=== PATIENT | male | born 1935 | race Caucasian/White ===

== ENCOUNTER 2016-12-07 13:45 | Emergency (ER) | payer OTHER ==
[~2016-12-07] VITALS: Ht 170.1 cm; Wt 81.6 kg
[~2016-12-07 13:45] MED LIST: ASPIRIN81 M1 PO; CARAFATE1 G1 PO; CIPRO500 MG PO; CLARITIN10 MG PO; COMPLETE SENIOR1 TA1 PO; EXTRA STRENGTH500 MG PO; FLOMAX0.4 MG PO; IBU800 MG PO; MECLOFENAMATE PO; MEDROL DOSEPAK4 MG PO; NEURONTIN300 MG PO; NORVASC10 MG PO; PERCOCET 325 MG1 TA2 PO; PROSCAR5 M1 PO; PROTONIX20 MG PO; PROTONIX40 MG PO; VITAMIN C500 M4 PO; VITAMIN D1000 IU PO; XALATAN 0.005%2.5 ML OS; ZANTAC 150150 MG PO; ZESTRIL40 MG PO; ZOFRAN ODT4 MG SL; [UNRECOGNIZED DRUG - OTHER] PO
[2016-12-07 15:00] VITALS: BP 128/70
== END 2016-12-07 16:20 | disposition home or self-care (01) ==
LOC: ED 13:45
DX: S01.81XA Laceration without foreign body of other part of head, initial encounter (principal); M79.622 Pain in left upper arm; Z98.890 Other specified postprocedural states; Z98.49 Cataract extraction status, unspecified eye; Z87.442 Personal history of urinary calculi; Z79.82 Long term (current) use of aspirin; W01.198A Fall on same level from slipping, tripping and stumbling with subsequent striking against other object, initial encounter; Y93.89 Activity, other specified; Y92.89 Other specified places as the place of occurrence of the external cause; Y99.9 Unspecified external cause status

== ENCOUNTER → 2017-10-01 | Outpatient (CLI) | payer OTHER | END | disposition home or self-care (01) | LOC: LAB 08:50 | DX: Z12.5 Encounter for screening for malignant neoplasm of prostate (principal); N20.0 Calculus of kidney; N40.0 Benign prostatic hyperplasia without lower urinary tract symptoms ==

== ENCOUNTER 2018-01-13 09:15 | Inpatient (IN) | payer OTHER ==
[2018-01-13] VITALS (10 sets, daily range): BP systolic 114–146; BP diastolic 67–82
[~2018-01-13] VITALS: Ht 170.1 cm; Wt 81.4 kg
--- NOTE | ~2018-01-13 | CON ---
[place], [place] REPORT OF CONSULTATION NAME: [facility]UFO [id number] UN[facility] #: [id number] ROOM: 530 DOCTOR: KADEN LIM MD BIRTHDATE: [birth year] DOS: 01/15/2018 HISTORY OF PRESENT ILLNESS: An 82-year-old patient who presented with chief complaint of epigastric abdominal pain. The patient is on Mobic. The patient was awakened with epigastric pain. His initial blood work shows white blood cell was 5.4, H and H of 12 and 40, when he ____ lactic acid was normal. INR 1.0. Chest x-ray was assessed, normal single chest x-ray. Comprehensive metabolic panel, BUN and creatinine 26 and 1.3. Electrolytes balance, liver function test normal. C-reactive protein 0.75. BNP normal. CT scan was reassessed and lung bases are clear. Liver, spleen, pancreas, adrenal glands, main organs within normal limits. There is a 5 mm stone at the left UV junction, but no hydronephrosis, otherwise benign. Sonogram was reviewed and unremarkable. Abdominal ultrasound, no cholelithiasis, no biliary dilation. Troponins normal. CBC, white blood cell remains 4.6, H and H of 11.9 and 36.9. No evidence of active bleeding. Blood cultures, normal. Hemoglobin A1c is 5.9. PAST MEDICAL HISTORY: Dyslipidemia, BPH, essential hypertension, gastroesophageal reflux, and renal calculi, all was reviewed. PAST SURGICAL HISTORY: Cataract extraction, hernia repair. SOCIAL HISTORY: Nonsmoker, nonalcohol consumer. FAMILY HISTORY: Noncontributory. ALLERGIES: To no known medications. MEDICATIONS: List was reviewed including aspirin and Meloxicam. He has been on Protonix at the same time. His medications reviewed. His labs reviewed. REVIEW OF SYSTEMS: HEENT: Denies double vision, blurred vision. RESPIRATORY: Denies shortness of breath. CARDIOVASCULAR: Denies acute chest pain. DIGESTIVE SYSTEM: Epigastric pain and subxiphoid pain. PHYSICAL EXAMINATION: GENERAL: Appears to be in no acute distress. HEENT: Head normocephalic, nontraumatic. Mouth and buccal mucosa benign. NECK: Supple, no thyromegaly, no cervical lymphadenopathy. CHEST: Symmetric anatomy, equal expansion. No wheeze, no rhonchi. HEART: Normal sinus rhythm, no gallop or murmur. ABDOMEN: Soft. No hepato-organomegaly. Bowel sounds present. No pulsatile mass. EXTREMITIES: No cyanosis, no pedal edema. NEUROLOGIC: Alert, oriented to time, place, and person. IMPRESSION: Epigastric distress, pain. The patient is on meloxicam, possibility of peptic ulcer disease, hiatal hernia has to be ruled out. The patient has been also on vitamin C daily that could have exacerbated [place], [place] REPORT OF CONSULTATION NAME: CHANDLERHELENE LAUREN COSTELLO Neeta UNIT #: [id number] ROOM: [facility] DOCTOR: KADEN LIM MD BIRTHDATE: [birth year] symptomatology. In addition to aspirin, the patient is on multiple other medications as reviewed. PLAN AND DISCUSSION: We are going to proceed with an organizing an EGD today. KADEN LIM MD CM:CONSTR:REPORT OF CONSULTATION 1644 01/16/18 0523 interface
--- NOTE | ~2018-01-13 | O ---
[place], [place] OPERATIVE NOTE NAME: LAUREN MARRUFO SR UNIT #: [id number] ROOM: 530 DOCTOR: KADEN LIM MD BIRTHDATE: [birth year] DOS: 01/15/2018 HISTORY OF PRESENT ILLNESS: An 82-year-old patient who presented with chief complaint of epigastric distress on Meloxicam, on aspirin, on vitamin C. Labs are reviewed, records have been reviewed. Consult has been dictated. Today's procedure part of investigation is panendoscopy plus biopsy. PREMEDICATION: Versed and Diprivan. SCOPE: Olympus forward-viewing gastroscope Q10 video. REPORT: After putting the patient in left lateral position and application of lubricant to the scope was introduced. Thereafter, under direct visualization, advanced through the length of esophagus without difficulty. Hiatal hernia, which is 3 cm was noticed. Gastric pouch was entered. Gastritis of mild degree seen. Antrum biopsy obtained. Duodenal bulb, second and third part within normal limits. The patient extubated, tolerated procedure well. IMPRESSION: Small hiatal hernia, gastritis. The cause of epigastric distress is a hiatal hernia. PLAN AND DISCUSSION: This patient on meloxicam, vitamin C and aspirin, needs to remain on some acid suppressive agent, i.e., omeprazole 20 mg 1 daily and Gaviscon Extra Strength 1 at bedtime, elevation of the head of the bed 6 inch all time, Gaviscon otherwise p.r.n. for subxiphoid pain. Follow up routinely as outpatient. KADEN LIM MD CM:OPRECORD:OPERATIVE NOTE [id number] KADEN LIM MD 01/15/18 1740 interface
[2018-01-13 09:58] LABS: BASO % 0.6 % (0.0-1.0); EOS # 0.1 10*3/uL (0.0-0.4); EOS % 1.7 % (1.0-4.0); HEMATOCRIT 40.4 % (42.0-52.0); HEMOGLOBIN 12.8 g/dl (14.0-18.0); LYMPH % 18.6 % (27.0-41.0); MEAN CELL VOLUME 89.2 fl (80.0-94.0); MEAN CORPUSCULAR HGB 28.3 pg (27.0-31.0); MEAN CORPUSCULAR HGB CONC 31.7 g/dl (33.0-37.0); MONO # 0.4 10*3/uL (0.1-1.0); MONO % 7.4 % (3.0-9.0); NEUT # 3.8 10*3/uL (2.3-7.9); NEUT % 71.5 % (47.0-73.0); PLATELET COUNT AUTOMATED 135 10*3/uL (130-400); RED BLOOD COUNT 4.53 10*6/uL (4.50-5.90); WHITE BLOOD COUNT 5.4 10*3/uL (4.8-10.8)
[2018-01-13 10:06] LABS: ACT PARTIAL THROMBO TIME 25.3 SECONDS (20.8-31.5)
[2018-01-13 10:15] LABS: ALKALINE PHOSPHATASE 93 U/L (45-117); BUN 26 mg/dl (7-24); CHLORIDE 106 mmol/L (98-107); CREATININE 1.35 mg/dL (0.70-1.30); LIPASE 76 U/L (73-393); SGOT/AST 24 IU/L (3-35); SGPT/ALT 25 U/L (12-78); SODIUM 140 mmol/L (136-145); TOTAL PROTEIN 7.5 gm/dL (6.4-8.2); TROPONIN I < 0.015 ng/ml (<0.045)
[2018-01-13] MEDS ORDERED: ZESTRIL20 MG PO (16:38)
[2018-01-14] VITALS: BP 111/65
[2018-01-14 06:40] LABS: BASO % 0.2 % (0.0-1.0); EOS # 0.1 10*3/uL (0.0-0.4); EOS % 1.5 % (1.0-4.0); HEMATOCRIT 36.9 % (42.0-52.0); HEMOGLOBIN 11.9 g/dl (14.0-18.0); LYMPH # 1.2 10*3/uL (1.3-4.4); MEAN CELL VOLUME 89.1 fl (80.0-94.0); MEAN CORPUSCULAR HGB 28.7 pg (27.0-31.0); MEAN CORPUSCULAR HGB CONC 32.2 g/dl (33.0-37.0); MEAN PLATELET VOLUME 10.9 fl (9.6-12.3); MONO # 0.4 10*3/uL (0.1-1.0); MONO % 8.5 % (3.0-9.0); NEUT # 2.9 10*3/uL (2.3-7.9); NEUT % 62.6 % (47.0-73.0); PLATELET COUNT AUTOMATED 122 10*3/uL (130-400); RED BLOOD COUNT 4.14 10*6/uL (4.50-5.90); RED CELL DISTRI WIDTH 13.1 % (0-14.5); WHITE BLOOD COUNT 4.6 10*3/uL (4.8-10.8)
[2018-01-14 07:17] LABS: ALBUMIN 3.4 gm/dl (3.1-4.5); BUN 20 mg/dl (7-24); CHLORIDE 107 mmol/L (98-107); CHOLESTEROL 133 mg/dL (<200); CREATININE 1.04 mg/dL (0.70-1.30); POTASSIUM 4.5 mmol/L (3.5-5.1); SGPT/ALT 21 U/L (12-78); SODIUM 139 mmol/L (136-145)
[2018-01-14 07:25] LABS: ALKALINE PHOSPHATASE 77 U/L (45-117); FREE T4 1.04 ng/dl (0.76-1.46); HDL CHOLESTEROL 42 mg/dl (40-60); LDL CHOLESTEROL 76 mg/dL (9-159); PHOSPHOROUS 2.2 mg/dL (2.5-4.9); SGOT/AST 21 IU/L (3-35); TOTAL PROTEIN 6.5 gm/dL (6.4-8.2); TRIGLYCERIDES 74 mg/dl (<150); VLDL CHOLESTEROL 15 mg/dL (6-40)
[2018-01-14 07:30] LABS: ACT PARTIAL THROMBO TIME 25.5 SECONDS (20.8-31.5)
[2018-01-14 08:00] VITALS: BP 130/76
[2018-01-14 08:13] LABS: BILIRUBIN NEGATIVE (NEGATIVE); BLOOD NEGATIVE (NEGATIVE); CLARITY CLEAR (CLEAR); COLOR YELLOW (YELLOW); GLUCOSE NEGATIVE (NEGATIVE); KETONE NEGATIVE (NEGATIVE); LEUKO ESTERASE NEGATIVE (NEGATIVE); NITRITE NEGATIVE (NEGATIVE); UROBILINOGEN 0.2 E.U./dl (0.2-1.0)
[2018-01-14 09:30] LABS: EPITHELIAL CELLS 0-2
[2018-01-14 12:00] VITALS: BP 116/66
[2018-01-14 16:00] VITALS: BP 118/67
[2018-01-14 20:00] VITALS: BP 114/76
[2018-01-15] VITALS: BP 129/76
[2018-01-15 06:48] LABS: BUN 25 mg/dl (7-24); CHLORIDE 106 mmol/L (98-107); CREATININE 1.15 mg/dL (0.70-1.30); SODIUM 139 mmol/L (136-145)
[2018-01-15 08:00] VITALS: BP 124/78
[2018-01-15 12:00] VITALS: BP 134/79
[2018-01-15] MEDS ORDERED: LEVOFLOXACIN500 MG PO (16:49)
[2018-01-15 17:04] VITALS: BP 92/52
[2018-01-15] MEDS ORDERED: GAVISCON ES TA1 EACH PO (17:04)
[2018-01-15 17:19] VITALS: BP 112/68
[2018-01-15 17:34] VITALS: BP 124/66
== END 2018-01-15 18:35 | disposition home or self-care (01) | DRG 682 ==
LOC: ED 09:15 → 5E 13:27 → EDHOLD 13:27 → 5E 13:42
PROVIDERS: Emergency Medicine; Hospitalist; Student in an Organized Health Care Education/Training Program
PROC: 0DB68ZX Excision of Stomach, Via Natural or Artificial Opening Endoscopic, Diagnostic (ICD-10-PCS; principal; 2018-01-15)
DX: N17.0 Acute kidney failure with tubular necrosis (principal); J18.9 Pneumonia, unspecified organism; N20.0 Calculus of kidney; I10 Essential (primary) hypertension; K21.9 Gastro-esophageal reflux disease without esophagitis; R79.82 Elevated C-reactive protein (CRP); D64.9 Anemia, unspecified; E55.9 Vitamin D deficiency, unspecified; K29.70 Gastritis, unspecified, without bleeding; N40.0 Benign prostatic hyperplasia without lower urinary tract symptoms; K44.9 Diaphragmatic hernia without obstruction or gangrene; E78.5 Hyperlipidemia, unspecified; Z91.81 History of falling; Z87.440 Personal history of urinary (tract) infections; Z79.899 Other long term (current) drug therapy; Z83.3 Family history of diabetes mellitus; Z98.49 Cataract extraction status, unspecified eye; Z87.442 Personal history of urinary calculi; Z79.82 Long term (current) use of aspirin; Z83.6 Family history of other diseases of the respiratory system

== ENCOUNTER 2018-08-07 23:48 | Emergency (ER) | payer OTHER ==
[~2018-08-07] VITALS: Ht 165.1 cm; Wt 81.6 kg
--- NOTE | ~2018-08-07 | EKG ---
[place], [place] ELECTROCARDIOGRAM REPORT NAME: LAUREN MARRUFO SR UNIT #: [id number] ROOM: DOCTOR: EPIPHANY DRAFT REPORT BIRTHDATE: [birth year] [facility] Test Date: 2018-08-08 Test Time: 00:07:46 Pat Name: LAUREN MARRUFO Department: Room: Gender: Log Deck Tender: Jesus Elliott : 1935 Requested By: ERYN MONTEZ Order Number: [id number] Reading MD: Camille Mccabe MD Measurements Intervals [place] Rate: 66 P: 48 NH: 198 QRS: 80 QRSD: 141 T: -24 QT: 404 QTc: 424 Interpretive Statements Sinus rhythm Right bundle branch block Electronically Signed On 08-09-2018 14:00:14 PDT by Camille Mccabe MD CM:EKGRPT:ELECTROCARDIOGRAM REPORT [id number] ERYN MONTEZ EPIPHANY DRAFT REPORT ERYN MONTEZ
[~2018-08-07 23:48] MED LIST changes: +GAVISCON ES TA1 EACH PO; +LEVOFLOXACIN500 MG PO; +ZESTRIL20 MG PO
[2018-08-08 00:12] LABS: BASO % 0.6 % (0.0-1.0); EOS # 0.2 10*3/uL (0.0-0.4); EOS % 3.1 % (1.0-4.0); HEMATOCRIT 37.4 % (42.0-52.0); HEMOGLOBIN 12.1 g/dl (14.0-18.0); LYMPH # 2.3 10*3/uL (1.3-4.4); LYMPH % 34.7 % (27.0-41.0); MEAN CELL VOLUME 91.7 fl (80.0-94.0); MEAN CORPUSCULAR HGB 29.7 pg (27.0-31.0); MEAN CORPUSCULAR HGB CONC 32.4 g/dl (33.0-37.0); MEAN PLATELET VOLUME 10.1 fl (9.6-12.3); MONO # 0.6 10*3/uL (0.1-1.0); MONO % 9.5 % (3.0-9.0); NEUT # 3.4 10*3/uL (2.3-7.9); NEUT % 51.8 % (47.0-73.0); PLATELET COUNT AUTOMATED 140 10*3/uL (130-400); RED BLOOD COUNT 4.08 10*6/uL (4.50-5.90); WHITE BLOOD COUNT 6.5 10*3/uL (4.8-10.8)
[2018-08-08 00:22] LABS: ACT PARTIAL THROMBO TIME 23.9 SECONDS (20.8-31.5); INTERNATIONAL NORM RATIO 0.9 (2.0-3.5)
[2018-08-08 00:27] LABS: ALBUMIN 3.9 gm/dl (3.1-4.5); ALKALINE PHOSPHATASE 75 U/L (45-117); BUN 36 mg/dl (7-24); CHLORIDE 107 mmol/L (98-107); CREATININE 1.42 mg/dL (0.70-1.30); LIPASE 98 U/L (73-393); POTASSIUM 4.7 mmol/L (3.5-5.1); SGOT/AST 16 IU/L (3-35); SGPT/ALT 23 U/L (12-78); SODIUM 139 mmol/L (136-145); TOTAL PROTEIN 6.8 gm/dL (6.4-8.2)
[2018-08-08 00:29] LABS: TROPONIN I < 0.015 ng/ml (<0.045)
[2018-08-08 01:51] VITALS: BP 130/71
== END 2018-08-08 02:18 | disposition home or self-care (01) ==
LOC: ED 23:48
PROVIDERS: Nurse Practitioner Family
DX: K82.8 Other specified diseases of gallbladder (principal); R10.11 Right upper quadrant pain; E78.5 Hyperlipidemia, unspecified; I10 Essential (primary) hypertension; K21.9 Gastro-esophageal reflux disease without esophagitis; Z98.890 Other specified postprocedural states; Z87.442 Personal history of urinary calculi; Z79.899 Other long term (current) drug therapy; Z79.82 Long term (current) use of aspirin

== ENCOUNTER → 2019-08-17 | Outpatient (CLI) | payer OTHER ==
[~2019-08-17] MED LIST changes: +MIRALAX POWDER17 G1 PO; +PREDNISONE10 MG PO; +PRINIVIL10 MG PO; +ZOFRAN4 MG PO
[2019-08-17 16:17] LABS: BUN 27 mg/dl (7-24); CHLORIDE 108 mmol/L (98-107); CREATININE 1.11 mg/dL (0.70-1.30); PHOSPHOROUS 2.9 mg/dL (2.5-4.9); POTASSIUM 4.6 mmol/L (3.5-5.1); SODIUM 141 mmol/L (136-145)
[2019-08-17 17:48] LABS: PTH INTACT 128.4 pg/mL (18.5-88.0); VITAMIN D, 25-HYDROXY 43.4 ng/mL (30-100)
== END | disposition home or self-care (01) ==
LOC: US 14:30
PROVIDERS: Internal Medicine Nephrology
DX: N18.3 Chronic kidney disease, stage 3 (moderate) (principal); N28.1 Cyst of kidney, acquired

== ENCOUNTER 2019-08-20 22:16 | Inpatient (IN) | payer OTHER ==
[~2019-08-20] VITALS: Ht 170.1 cm; Wt 77.6 kg
[~2019-08-20 22:16] MED LIST changes: -MIRALAX POWDER17 G1 PO; -PREDNISONE10 MG PO; -PRINIVIL10 MG PO; -ZOFRAN4 MG PO
[2019-08-20 22:18] VITALS: BP 163/86
--- NOTE | 2019-08-20 22:50 | NUR ---
PATIENT HAS LEFT THE FLOOR AT THIS TIME TO GO TO CT SCAN
[2019-08-20 22:51] LABS: BASO # 0.1 10*3/uL (0.0-0.1); BASO % 0.6 % (0.0-1.0); EOS # 0.2 10*3/uL (0.0-0.4); EOS % 1.9 % (1.0-4.0); HEMATOCRIT 42.3 % (42.0-52.0); HEMOGLOBIN 13.7 g/dl (14.0-18.0); LYMPH # 1.4 10*3/uL (1.3-4.4); LYMPH % 16.8 % (27.0-41.0); MEAN CELL VOLUME 91.8 fl (80.0-94.0); MEAN CORPUSCULAR HGB 29.7 pg (27.0-31.0); MEAN CORPUSCULAR HGB CONC 32.4 g/dl (33.0-37.0); MEAN PLATELET VOLUME 10.5 fl (9.6-12.3); MONO # 0.7 10*3/uL (0.1-1.0); MONO % 8.2 % (3.0-9.0); NEUT # 6.1 10*3/uL (2.3-7.9); NEUT % 72.3 % (47.0-73.0); PLATELET COUNT AUTOMATED 178 10*3/uL (130-400); RED BLOOD COUNT 4.61 10*6/uL (4.50-5.90); RED CELL DISTRI WIDTH 12.9 % (0-14.5); WHITE BLOOD COUNT 8.4 10*3/uL (4.8-10.8)
[2019-08-20 23:04] VITALS: BP 155/80
[2019-08-20 23:06] LABS: ALBUMIN 3.8 gm/dl (3.1-4.5); ALKALINE PHOSPHATASE 79 U/L (45-117); BUN 21 mg/dl (7-24); CHLORIDE 106 mmol/L (98-107); INTERNATIONAL NORM RATIO 0.9 (2.0-3.5); LIPASE 51 U/L (73-393); POTASSIUM 4.4 mmol/L (3.5-5.1); SGOT/AST 19 IU/L (3-35); SGPT/ALT 21 U/L (12-78); SODIUM 137 mmol/L (136-145); TOTAL PROTEIN 7.2 gm/dL (6.4-8.2)
[2019-08-20 23:10] LABS: TROPONIN I < 0.015 ng/ml (<0.045)
[2019-08-21 00:36] LABS: BILIRUBIN NEGATIVE (NEGATIVE); BLOOD NEGATIVE (NEGATIVE); CLARITY CLEAR (CLEAR); COLOR YELLOW (YELLOW); GLUCOSE NEGATIVE (NEGATIVE); KETONE NEGATIVE (NEGATIVE); LEUKO ESTERASE NEGATIVE (NEGATIVE); NITRITE NEGATIVE (NEGATIVE); PH 5.5 (5.0-9.0); SPECIFIC GRAVITY 1.025 (1.005-1.030); UROBILINOGEN 0.2 E.U./dl (0.2-1.0)
[2019-08-21 00:41] VITALS: BP 139/72
[2019-08-21 00:46] LABS: BACTERIA TRACE; EPITHELIAL CELLS 0-2; RBC 0-2 rbc/hpf (0-2)
[2019-08-21 01:20] VITALS: BP 166/85
--- NOTE | 2019-08-21 01:45 | NUR ---
DR FONSECA NOTIFIED THAT PATIENT HAS ARRIVED TO THE FLOOR. PATIENT CONDITION, LABS AND ER TESTS REVIEWED. ORDERS RECEIVED. HOME MEDS CONTINUED PER ORDER. DR. FONSECA WILL BE IN TO SEE THE PATIENT TODAY. MED REC UPDATED PER FAMILY.
--- NOTE | 2019-08-21 01:58 | NUR ---
Time: 119 A 84 year old MALE admitted to 5E under services of DR. MARIAN MARTIN,[facility]. Pt. arrived via bed from ER. Chief complaint: UNDIFFERENTIATED BACK PAIN. PATIENT ORIENTED TO 5E. ORDERS RECEIVED FROM DR. FONSECA CALL LIGHT SYSTEM REVIEWED AND DEMONSTRATED LUPILLO GILBERT
[2019-08-21] MEDS ORDERED: PRINIVIL10 MG PO (03:03)
[2019-08-21 08:00] VITALS: BP 128/74
--- NOTE | 2019-08-21 11:41 | NUR ---
DILAUDID 0.25 MG GIVEN FOR C/O BACK PAIN,06/25.
[2019-08-21 12:00] VITALS: BP 123/75
--- NOTE | 2019-08-21 13:26 | NUR ---
NOTIFIED DR FONSECA OF PT C/O OF PAIN,06/25. PT HAS PREVIOUSLY BEEN MEDICATED WITH DILAUDID 0.25 MG.ORDERS RECIEVED.
--- NOTE | 2019-08-21 13:55 | NUR ---
NOTIFIED DR FONSECA OF PT SEEING DR GIL ON THURSDAY FOR RENAL ULTRASOUND F/U. ORDERS RECIEVED.
--- NOTE | 2019-08-21 15:47 | NUR ---
NOTIFIED DR FONSECA PT WAS C/O PAIN,07/26. PT HAD ALREADY RECIEVED DILAUDID 0.25 MG.ORDERS RECIEVED.
[2019-08-21 16:00] VITALS: BP 108/62
--- NOTE | 2019-08-21 19:21 | NUR ---
PATIENT RESTING IN BED WITH VISITORS AT BEDSIDE. DENIES NEEDS OR PAIN AT THIS TIME. PATIENT'S FAMILY ASKING ABOUT CT SCAN RESULTS. MADE AWARE THAT THERE ARE NO RESULTS AT THIS TIME, AND THIS RN CANNOT GIVE RESULTS. MADE AWARE THAT THE DOCTOR WILL GO OVER ANY TEST RESULTS IN THE MORNING. PATIENT AND FAMILY VERBALIZED UNDERSTANDING. BED IN LOWEST POSITION, CALL LIGHT IN REACH
[2019-08-21 20:00] VITALS: BP 119/76
[2019-08-22] VITALS: BP 140/93
--- NOTE | 2019-08-22 00:12 | NUR ---
24 HOUR CHART CHECK COMPLETE.
--- NOTE | 2019-08-22 04:35 | NUR ---
NOTIFIED DR ANNE OF BRIEF RHYTHM CHANGE THAT MONITOR ROOM NOTIFIED ME OF. NO NEW ORDERS AT THIS TIME. WILL CONTINUE TO MONITOR. PT DENIES CP OR SOB ON ASSESSMENT.
--- NOTE | 2019-08-22 06:25 | NUR ---
MRI FORM COMPLETED AND ON PT CHART.
[2019-08-22 08:00] VITALS: BP 154/82
--- NOTE | 2019-08-22 08:50 | NUR ---
Nursing screen received and chart review completed. Patient admitted with severe back pain and testing continues. If patient should have a decline in ADLs or safety in mobility, then refer to Occupational Therapy. Thank you. Linda Lawler OTR/L
--- NOTE | 2019-08-22 09:00 | NUR ---
Coil Winder Strap in to talk to patient. Patient states lives at home with his daughter living right next door. There are 0 steps in the home. Physician: Dr. Gurrola [facility]acy: [facility] Home health services: none Patient's level of ADLs: INDEPENDENT Patient has working utilities: yes DME: none Follow-up physician's appointment after d/c: he prefers to make his own follow up appt after discharge Does patient want to access PORTAL?: no Discharge plan discussed with patient. Family at bedside. He lives at home alone with his daughter living right next door to him. He is independent in his ADLs and ambulation. Discussed home health care services and he denies any home needs at this time. When medically stable he will be discharged to home. His daughter will provide transportation on discharge. KELLEY VELASQUEZ
--- NOTE | 2019-08-22 09:48 | NUR ---
DILAUDID 0.25 MG GIVEN FOR C/O BACK/FLANK PAIN,07/26.
[2019-08-22 12:00] VITALS: BP 149/85
[2019-08-22 16:00] VITALS: BP 120/72
[2019-08-22] MEDS ORDERED: PREDNISONE10 MG PO (16:34)
--- NOTE | 2019-08-22 18:18 | NUR ---
Discharge instructions reviewed with patient/family. Patient receptive and verbalizes understanding. Follow-up care arranged. Written instructions given to patient/family. SAJI BRADSHAW
== END 2019-08-22 18:18 | disposition home or self-care (01) | DRG 552 ==
LOC: ED 22:16 → 5E 08-21 00:32 → EDHOLD 08-21 00:32 → 5E 08-21 01:05
PROVIDERS: Emergency Medicine Emergency Medical Services; ADMIT Internal Medicine
DX: M51.24 Other intervertebral disc displacement, thoracic region (principal); M81.0 Age-related osteoporosis without current pathological fracture; N20.0 Calculus of kidney; N40.0 Benign prostatic hyperplasia without lower urinary tract symptoms; R10.9 Unspecified abdominal pain; E55.9 Vitamin D deficiency, unspecified; M48.04 Spinal stenosis, thoracic region; E78.5 Hyperlipidemia, unspecified; K21.9 Gastro-esophageal reflux disease without esophagitis; Z91.81 History of falling; Z87.442 Personal history of urinary calculi; Z87.01 Personal history of pneumonia (recurrent); Z87.440 Personal history of urinary (tract) infections; Z82.5 Family history of asthma and other chronic lower respiratory diseases; Z79.899 Other long term (current) drug therapy; Z79.82 Long term (current) use of aspirin

== ENCOUNTER → 2019-09-01 | Outpatient (CLI) | payer OTHER ==
[~2019-09-01] MED LIST changes: +MIRALAX POWDER17 G1 PO; +PREDNISONE10 MG PO; +PRINIVIL10 MG PO; +ZOFRAN4 MG PO
== END | disposition home or self-care (01) ==
LOC: RAD 12:46
DX: M81.0 Age-related osteoporosis without current pathological fracture (principal)

== ENCOUNTER 2019-09-18 02:28 | Emergency (ER) | payer OTHER ==
[~2019-09-18] VITALS: Wt 77.1 kg
[~2019-09-18 02:28] MED LIST changes: -MIRALAX POWDER17 G1 PO; -ZOFRAN4 MG PO
[2019-09-18 03:09] LABS: BASO % 0.7 % (0.0-1.0); EOS # 0.2 10*3/uL (0.0-0.4); HEMATOCRIT 39.8 % (42.0-52.0); HEMOGLOBIN 12.9 g/dl (14.0-18.0); LYMPH # 0.8 10*3/uL (1.3-4.4); LYMPH % 12.4 % (27.0-41.0); MEAN CELL VOLUME 91.7 fl (80.0-94.0); MEAN CORPUSCULAR HGB 29.7 pg (27.0-31.0); MEAN CORPUSCULAR HGB CONC 32.4 g/dl (33.0-37.0); MEAN PLATELET VOLUME 9.2 fl (9.6-12.3); MONO # 0.5 10*3/uL (0.1-1.0); MONO % 7.8 % (3.0-9.0); NEUT # 4.5 10*3/uL (2.3-7.9); NEUT % 74.6 % (47.0-73.0); PLATELET COUNT AUTOMATED 157 10*3/uL (130-400); RED BLOOD COUNT 4.34 10*6/uL (4.50-5.90); RED CELL DISTRI WIDTH 11.9 % (0-14.5); WHITE BLOOD COUNT 6.1 10*3/uL (4.8-10.8)
[2019-09-18 03:24] LABS: ALBUMIN 3.5 gm/dl (3.1-4.5); ALKALINE PHOSPHATASE 81 U/L (45-117); BUN 35 mg/dl (7-24); CHLORIDE 102 mmol/L (98-107); CREATININE 1.18 mg/dL (0.70-1.30); POTASSIUM 4.1 mmol/L (3.5-5.1); SGOT/AST 23 IU/L (3-35); SGPT/ALT 22 U/L (12-78); SODIUM 136 mmol/L (136-145); TOTAL PROTEIN 6.9 gm/dL (6.4-8.2)
[2019-09-18 07:19] VITALS: BP 109/81
[2019-09-18] MEDS ORDERED: MIRALAX POWDER17 G1 PO (07:56)
[2019-09-18] MEDS ORDERED: ZOFRAN4 MG PO (07:58)
[2019-09-18 08:22] LABS: BILIRUBIN NEGATIVE (NEGATIVE); BLOOD NEGATIVE (NEGATIVE); CLARITY CLEAR (CLEAR); COLOR YELLOW (YELLOW); GLUCOSE NEGATIVE (NEGATIVE); KETONE NEGATIVE (NEGATIVE); LEUKO ESTERASE NEGATIVE (NEGATIVE); NITRITE NEGATIVE (NEGATIVE); PH 5.5 (5.0-9.0); UROBILINOGEN 0.2 E.U./dl (0.2-1.0)
[2019-09-18 08:29] LABS: RBC 0-2 rbc/hpf (0-2)
[2019-09-18 08:30] LABS: BACTERIA 1+; MUCOUS 2+
== END 2019-09-18 08:28 | disposition home or self-care (01) ==
LOC: ED 02:28
PROVIDERS: Emergency Medicine
DX: K59.00 Constipation, unspecified (principal); I10 Essential (primary) hypertension; K21.9 Gastro-esophageal reflux disease without esophagitis; Z87.442 Personal history of urinary calculi; Z79.899 Other long term (current) drug therapy; Z79.82 Long term (current) use of aspirin

== ENCOUNTER → 2020-04-24 | Outpatient (CLI) | payer OTHER ==
[~2020-04-24] MED LIST changes: +MIRALAX POWDER17 G1 PO; +ZOFRAN4 MG PO
[2020-04-24 11:01] LABS: BUN 24 mg/dl (7-24); CHLORIDE 109 mmol/L (98-107); POTASSIUM 4.9 mmol/L (3.5-5.1); SODIUM 139 mmol/L (136-145)
== END | disposition home or self-care (01) ==
LOC: LAB 10:06
PROVIDERS: Internal Medicine Cardiovascular Disease
DX: I10 Essential (primary) hypertension (principal)

== ENCOUNTER 2020-10-17 11:03 | Emergency (ER) | payer OTHER ==
[~2020-10-17] VITALS: Wt 70.3 kg
[2020-10-17 12:23] LABS: ACT PARTIAL THROMBO TIME 29.6 SECONDS (20.0-32.1)
[2020-10-17 12:27] LABS: ALBUMIN 3.1 gm/dl (3.1-4.5); ALKALINE PHOSPHATASE 72 U/L (45-117); BUN 33 mg/dl (7-24); CHLORIDE 106 mmol/L (98-107); CPK 56 U/L (39-308); CREATININE 1.14 mg/dL (0.70-1.30); POTASSIUM 3.9 mmol/L (3.5-5.1); SGOT/AST 40 IU/L (3-35); SGPT/ALT 25 U/L (12-78); SODIUM 139 mmol/L (136-145); TOTAL PROTEIN 7.3 gm/dL (6.4-8.2)
[2020-10-17 12:29] LABS: BASO % 0.2 % (0.0-1.0); EOS % 0.2 % (1.0-4.0); HEMATOCRIT 42.7 % (42.0-52.0); LYMPH # 0.8 10*3/uL (1.3-4.4); LYMPH % 14.5 % (27.0-41.0); MEAN CELL VOLUME 88.6 fl (80.0-94.0); MEAN CORPUSCULAR HGB CONC 31.6 g/dl (33.0-37.0); MEAN PLATELET VOLUME 10.6 fl (9.6-12.3); MONO # 0.3 10*3/uL (0.1-1.0); MONO % 5.9 % (3.0-9.0); NEUT # 4.4 10*3/uL (2.3-7.9); NEUT % 78.7 % (47.0-73.0); PLATELET COUNT AUTOMATED 105 10*3/uL (130-400); RED BLOOD COUNT 4.82 10*6/uL (4.50-5.90); RED CELL DISTRI WIDTH 12.3 % (0-14.5); WHITE BLOOD COUNT 5.6 10*3/uL (4.8-10.8)
[2020-10-17 12:36] LABS: TROPONIN I < 0.015 ng/ml (<0.045)
[2020-10-17] MEDS ORDERED: TESSALON PERLE100 MG PO ×2 (14:54)
[2020-10-17] MEDS ORDERED: DEXAMETHASONE6 MG PO (14:54)
[2020-10-17 16:36] VITALS: BP 123/81
[2020-10-17 17:03] LABS: BILIRUBIN 1+ (Negative); BLOOD Negative (Negative); CLARITY Clear (Clear); COLOR Dark Yellow (Yellow); GLUCOSE Negative (Negative); KETONE Trace (Negative); LEUKO ESTERASE Trace (Negative); NITRITE Negative (Negative); SPECIFIC GRAVITY >= 1.030 (1.001-1.030)
[2020-10-17 17:17] LABS: WBC 0-2 wbc/hpf (0-5)
== END 2020-10-17 17:55 | disposition home or self-care (01) ==
LOC: ED 11:03
PROVIDERS: Emergency Medicine
DX: U07.1 COVID-19 (principal); J18.0 Bronchopneumonia, unspecified organism; Z79.899 Other long term (current) drug therapy

== ENCOUNTER 2020-10-19 11:31 | Inpatient (IN) | payer OTHER ==
[2020-10-19] VITALS (16 sets, daily range): BP systolic 113–141; BP diastolic 68–94
[~2020-10-19] VITALS: Ht 165.1 cm; Wt 67.7 kg
[~2020-10-19 11:31] MED LIST changes: +DEXAMETHASONE6 MG PO; +TESSALON PERLE100 MG PO
--- NOTE | 2020-10-19 12:00 | NUR ---
PATIENT STATES THAT I AM ABLE TO CONTACT HIS DAUGHTER WITH UPDATES REGARDING HIS VISIT. HIS DAUGHTER IS ANIKA SCHMITT PHONE NUMBER [phone]
[2020-10-19 12:20] LABS: HEMATOCRIT 44.1 % (42.0-52.0); MEAN CELL VOLUME 86.1 fl (80.0-94.0); MEAN CORPUSCULAR HGB 28.1 pg (27.0-31.0); MEAN CORPUSCULAR HGB CONC 32.7 g/dl (33.0-37.0); MEAN PLATELET VOLUME 10.9 fl (9.6-12.3); RED BLOOD COUNT 5.12 10*6/uL (4.50-5.90); RED CELL DISTRI WIDTH 12.3 % (0-14.5)
[2020-10-19 12:22] LABS: PLATELET COUNT AUTOMATED 160 10*3/uL (130-400)
--- NOTE | 2020-10-19 12:29 | NUR ---
PATIENT IS RESTING AT THIS TIME. PER DR MORELAND HE WOULD LIKE THE PATIENT OFF OF THE NC TO MONITOR HIS SPO2 LEVELS ON ROOM AIR. PATIENT IS CURRNETLY 92% ON ROOM AIR AT THIS TIME. PATIENT IN NO DISTRESS. RESP EASY AND NON LABORED. CALL LIGHT IN REACH. WILL CONTINUE TO ZIONIOR PT.
[2020-10-19 12:30] LABS: BASOPHILS 1 % (0-1); TOTAL CELLS COUNTED 100 #CELLS
[2020-10-19 12:31] LABS: OVALOCYTES FEW; PLATELET SUFFICIENCY NORMAL (NORMAL)
[2020-10-19 12:34] LABS: ALBUMIN 3.1 gm/dl (3.1-4.5); ALKALINE PHOSPHATASE 68 U/L (45-117); BUN 44 mg/dl (7-24); CHLORIDE 108 mmol/L (98-107); CREATININE 1.06 mg/dL (0.70-1.30); POTASSIUM 3.8 mmol/L (3.5-5.1); SGOT/AST 48 IU/L (3-35); SGPT/ALT 37 U/L (12-78); SODIUM 140 mmol/L (136-145); TOTAL PROTEIN 7.1 gm/dL (6.4-8.2)
[2020-10-19 12:35] LABS: TROPONIN I 0.016 ng/ml (<0.045)
--- NOTE | 2020-10-19 12:41 | NUR ---
I CONTACTED THE PATIENTS DAUGHTER AND GAVE HER AN UPDATE REGARDING HER FATHER.
--- NOTE | 2020-10-19 13:32 | NUR ---
PATIENT RESTING AT THIS TIME. CALL LIGHT IN REACH. PATIENT WATCHING TELEVISION. PROVIDED BALDEV AMARJIT. RESP EASY AND NON LABORED. PWD. NO COMPLAINTS AT THIS TIME. WILL CONTINUE TO MONITOR.
--- NOTE | 2020-10-19 14:07 | NUR ---
DR HAMLIN WAS CONSULTED AT [phone]. INFORMED OF THE PATIENT HERE IN THE ED. NO NEW ORDERS AT THIS TIME.
[2020-10-19 14:25] LABS: ABG BASE EXCESS -1.4 mmol/L (-2.0-2.0); ARTERIAL BLOOD GAS PH 7.424 (7.35-7.45)
--- NOTE | 2020-10-19 14:50 | NUR ---
LUNA FROM LAB CONTACTED AND INFORMED MYSELF THAT THE WRONG ABGS WERE RAN FOR THIS PATIENT. STATES THAT THE CORRECT ONES WILL BE POPULATED INTO THE CHART.
--- NOTE | 2020-10-19 15:00 | NUR ---
I SPOKE TO IHSAN RAND WHO IS THE CHARGE NURSE AND ANASTACIA THE DIRECTOR REGARDING THE INCIDENT AND BOTH OF THEM WERE NOTIFIED.
--- NOTE | 2020-10-19 15:10 | NUR ---
I SPOKE TO DR HAMLIN REGARDING THE PATIENT. DR HAMLIN WAS INFORMED OF THE CORRECT RESULTS ON THE PATIENT.
--- NOTE | 2020-10-19 15:29 | NUR ---
PATIENT IS RESTING AT THIS TIME. CALL LIGHT IN REACH.
--- NOTE | 2020-10-19 16:09 | NUR ---
PATIENT IS RESTING AT THIS TIME. NO COMPLAINTS. WATCHING TELEVISION. WILL CONTINUE TO MONITOR PT. CALL LIGHT IN REACH. LIGHTS DIMMED.
[2020-10-19] MEDS ORDERED: LORATADINE-D 11 EACH PO (16:20)
--- NOTE | 2020-10-19 16:30 | NUR ---
PATIENT RESTING AT THIS TIME. NO COMPLAINTS. NO DISTRESS. CALL LIGHT IN REACH. RESP EASY AND NON LABORED.
--- NOTE | 2020-10-19 17:45 | NUR ---
PATIENT PROVIDED A DINNER TRAY AT THIS TIME. ASSISTED TO SET THE BEDSIDE TABLE UP. WILL CONTINUE TO MONITOR PT.
--- NOTE | 2020-10-19 18:10 | NUR ---
PATIENT IS RESTING. MONITORING THE PATIENT FROM THE DESK, THE PATIENTS SPO2 WAS DROPPING TO 88-89%. WHEN GOING TO THE ROOM, THE PATIENT DENIES ANY SHORTNESS OF BREATH AT THIS TIME. PATIENT WAS REPOSITIONED. EQUIPMENT WAS CHECKED. PATIENTS OXYGEN WAS INCREASED TO 4 LITERS PER MINUTE WITH NO CHANGE. NC WAS THEN INCREASED TO 6 LITERS, CONTINUES TO BE NO CHANGE. PATIENT THEN PLACED ON 12 LITERS VIA NON REBREATHER. SPO2 THEN INCREASED TO 93%. RESIDENT WILL BE CONTACTED.
--- NOTE | 2020-10-19 18:15 | NUR ---
I CONTACTED THE RESIDENT BUSINESS INSTRUCTOR, DR DOMINGUEZ. DR DOMINGUEZ STATED TO CONTACT RESPIRATORY AND SUGGESTED THAT THEY COME DOWN TO THE ED TO PLACE THE PATIENT ON HIGH FLOW O2.
--- NOTE | 2020-10-19 18:16 | NUR ---
RESPIRATORY HAS BEEN CONTACTED AND THEY WILL BE COMING TO THE ED FOR FURTHER EVALUATION.
--- NOTE | 2020-10-19 18:25 | NUR ---
RESPIRATORY ARRIVED. RESPIRATORY DECIDED TO PLACE THE PATIENT ON BIPAP.
--- NOTE | 2020-10-19 20:00 | NUR ---
PATIENT RESTING AT THIS TIME. TOLERATING BIPAP. WATCHING TELEVISION. WILL CONTINUE TO MONITOR PT.
--- NOTE | 2020-10-19 20:17 | NUR ---
RESPIRATORY IN ROOM OBTAINING ABGS.
[2020-10-19 20:26] LABS: ARTERIAL BLOOD GAS PH 7.42 (7.35-7.45)
--- NOTE | 2020-10-19 20:35 | NUR ---
DECREASED FIO2 TO 70% PER DR HAMLIN. G IN AM
--- NOTE | 2020-10-19 20:35 | NUR ---
DR HAMLIN CONTACTED AND STATED THAT HE SAW THE PATIENTS ABGS AND THAT HE WOULD LIKE THE SETTINGS DECREASED TO 70%. NOTES THAT HE WOULD LIKE ABGS DRAWN IN THE MORNING UNLESS THE PATIENTS RESPIRATORY STATUS BEGINS TO DECREASE OVERNIGHT.
--- NOTE | 2020-10-19 20:45 | NUR ---
THE PATIENTS DAUGHTER CONTACTED THE ED IN REGARDS TO HER FATHER. THE PATIENT HAS GIVEN VERBAL CONSENT TO UPDATE HIS DAUGHTER. HIS DAUGHTER WAS UPDATED. SHE WOULD LIKE TO BE CONTACTED IF THERE ARE ANY CHANGES IN THE PATIENTS CONDITION.
--- NOTE | 2020-10-19 21:12 | NUR ---
PATIENT IS RESTING AT THIS TIME. TOLERATING BIPAP. CALL LIGHT IN REACH. PATIENT WATCHING TELEVISION. WILL CONTINUE TO MONITOR. VITAL SIGNS STABLE AT THIS TIME.
--- NOTE | 2020-10-19 21:50 | NUR ---
PATIENT RESTING AT THIS TIME. NO COMPLAINTS. TOLERATING BIPAP WELL.
--- NOTE | 2020-10-19 22:46 | NUR ---
PATIENT RESTING AT THIS TIME. IN POSITION OF COMFORT. PATIENT CONTINUES TO TOLERATE BIPAP WELL. CALL LIGHT IN REACH. PROVIDED TELEVISION. WILL CONTINUE TO MONITOR PT.
--- NOTE | 2020-10-19 23:08 | NUR ---
A 85, admitted to , under the services of JAVIER Bryant DO with a diagnosis of COVID-19, BRONCHOPNEUMONIA. Chief complaint is SHORTNESS OF BREATH. Patient arrived via bed from ER. Monitor applied. Initial assessment completed. Vital signs taken and recorded. JAVIER BRYANT DO notified of admission to the unit. Orders received. See assessment for past medical history, medications and allergies. Patient and/or family oriented to unit. [address] visitation policy reviewed. Clothing/patient valuable form completed. ARTURO BAILEY
--- NOTE | 2020-10-19 23:20 | NUR ---
PATIENT HAS BEEN TAKEN UP TO THE 4TH FLOOR ROOM 409. DAUGHTER WAS NOTIFIED.
[2020-10-20] VITALS: BP 141/94; BP 151/73
[2020-10-20] MEDS ORDERED: AMLODIPINE BESYL5 MG PO (01:49)
--- NOTE | 2020-10-20 03:49 | NUR ---
24 HR chart check completed.
[2020-10-20 06:24] LABS: HEMATOCRIT 39.1 % (42.0-52.0); MEAN CELL VOLUME 87.3 fl (80.0-94.0); MEAN CORPUSCULAR HGB 28.3 pg (27.0-31.0); MEAN CORPUSCULAR HGB CONC 32.5 g/dl (33.0-37.0); MEAN PLATELET VOLUME 10.7 fl (9.6-12.3); PLATELET COUNT AUTOMATED 165 10*3/uL (130-400); RED BLOOD COUNT 4.48 10*6/uL (4.50-5.90); RED CELL DISTRI WIDTH 12.4 % (0-14.5); WHITE BLOOD COUNT 11.8 10*3/uL (4.8-10.8)
[2020-10-20 06:52] LABS: ALBUMIN 2.7 gm/dl (3.1-4.5); ALKALINE PHOSPHATASE 63 U/L (45-117); BUN 45 mg/dl (7-24); CHLORIDE 111 mmol/L (98-107); CREATININE 0.76 mg/dL (0.70-1.30); POTASSIUM 4.2 mmol/L (3.5-5.1); SGOT/AST 46 IU/L (3-35); SGPT/ALT 42 U/L (12-78); SODIUM 141 mmol/L (136-145); TOTAL PROTEIN 6.3 gm/dL (6.4-8.2)
[2020-10-20 07:29] LABS: PLATELET SUFFICIENCY NORMAL (NORMAL); TOTAL CELLS COUNTED 100 #CELLS
[2020-10-20 08:00] VITALS: BP 107/66; BP 156/89
[2020-10-20 08:07] LABS: ABG BASE EXCESS 0.1 mmol/L (-2.0-2.0); ARTERIAL BLOOD GAS PH 7.445 (7.35-7.45)
--- NOTE | 2020-10-20 09:21 | NUR ---
Wine Consultant in to talk to patient. Patient states lives at home with alone with family next door. There are no steps in the home. Physician: kendal [facility] Home health services: none Patient's level of ADLs: INDEPENDENT Patient has working utilities: all working DME: nine Follow-up physician's appointment after d/c: will be made by hospitalist nruse director upon discharge Does patient want to access PORTAL?: no Discharge plan discussed with patient, he lives at home alone with family living next door. he is independent in adls and ambulation, states he would like to return home when discharged and denies any home needs at this time, case management will follow. KAREN DURBIN
[2020-10-20 12:00] VITALS: BP 141/87
[2020-10-20 16:00] VITALS: BP 140/90
[2020-10-20 20:00] VITALS: BP 149/87
[2020-10-21] VITALS: BP 143/79; BP 149/87
[2020-10-21 06:08] LABS: BASO % 0.1 % (0.0-1.0); LYMPH # 0.7 10*3/uL (1.3-4.4); LYMPH % 5.6 % (27.0-41.0); MEAN CELL VOLUME 87.4 fl (80.0-94.0); MEAN CORPUSCULAR HGB 28.4 pg (27.0-31.0); MEAN CORPUSCULAR HGB CONC 32.4 g/dl (33.0-37.0); MEAN PLATELET VOLUME 10.9 fl (9.6-12.3); MONO # 0.5 10*3/uL (0.1-1.0); NEUT % 89.6 % (47.0-73.0); PLATELET COUNT AUTOMATED 202 10*3/uL (130-400); RED BLOOD COUNT 4.69 10*6/uL (4.50-5.90); RED CELL DISTRI WIDTH 12.4 % (0-14.5); WHITE BLOOD COUNT 12.3 10*3/uL (4.8-10.8)
[2020-10-21 06:34] LABS: ALBUMIN 2.8 gm/dl (3.1-4.5); BUN 41 mg/dl (7-24); CHLORIDE 109 mmol/L (98-107); POTASSIUM 4.5 mmol/L (3.5-5.1); SODIUM 141 mmol/L (136-145); TOTAL PROTEIN 6.8 gm/dL (6.4-8.2)
[2020-10-21 06:37] LABS: ALKALINE PHOSPHATASE 72 U/L (45-117); SGOT/AST 55 IU/L (3-35); SGPT/ALT 68 U/L (12-78)
[2020-10-21 08:00] VITALS: BP 145/80
[2020-10-21 12:00] VITALS: BP 132/74
[2020-10-21 13:40] LABS: ABG BASE EXCESS 0.6 mmol/L (-2.0-2.0); ARTERIAL BLOOD GAS PH 7.443 (7.35-7.45)
[2020-10-21 16:00] VITALS: BP 144/79
[2020-10-21 20:00] VITALS: BP 146/89
[2020-10-22] VITALS: BP 148/81
--- NOTE | 2020-10-22 00:15 | NUR ---
Pt placed on BiPap 14/10 - FiO2 60% - Alarms on and audible.
[2020-10-22 06:33] LABS: BASO % 0.1 % (0.0-1.0); HEMATOCRIT 38.8 % (42.0-52.0); LYMPH # 0.6 10*3/uL (1.3-4.4); LYMPH % 5.4 % (27.0-41.0); MEAN CELL VOLUME 87.4 fl (80.0-94.0); MEAN CORPUSCULAR HGB 28.4 pg (27.0-31.0); MEAN CORPUSCULAR HGB CONC 32.5 g/dl (33.0-37.0); MEAN PLATELET VOLUME 10.8 fl (9.6-12.3); MONO # 0.5 10*3/uL (0.1-1.0); MONO % 4.5 % (3.0-9.0); NEUT # 9.2 10*3/uL (2.3-7.9); NEUT % 88.7 % (47.0-73.0); PLATELET COUNT AUTOMATED 213 10*3/uL (130-400); RED BLOOD COUNT 4.44 10*6/uL (4.50-5.90); RED CELL DISTRI WIDTH 12.3 % (0-14.5); WHITE BLOOD COUNT 10.4 10*3/uL (4.8-10.8)
[2020-10-22 06:50] LABS: ALBUMIN 2.6 gm/dl (3.1-4.5); ALKALINE PHOSPHATASE 67 U/L (45-117); BUN 37 mg/dl (7-24); CHLORIDE 108 mmol/L (98-107); POTASSIUM 4.4 mmol/L (3.5-5.1); SGOT/AST 42 IU/L (3-35); SGPT/ALT 56 U/L (12-78); SODIUM 141 mmol/L (136-145); TOTAL PROTEIN 6.3 gm/dL (6.4-8.2)
--- NOTE | 2020-10-22 07:43 | NUR ---
OT NOTE Occupational therapy order and nursing screen received. Will follow up with patient for completion of an OT evaluation. Thank you. Rosa Dominguez, OTR/L
[2020-10-22 08:00] VITALS: BP 151/76
--- NOTE | 2020-10-22 08:37 | NUR ---
PHYSICAL THERAPY PT eval and screen recieved will follow thank you Crystal Lewis PT
[2020-10-22 08:44] LABS: ABG BASE EXCESS 2.2 mmol/L (-2.0-2.0); ARTERIAL BLOOD GAS PH 7.457 (7.35-7.45)
--- NOTE | 2020-10-22 09:26 | NUR ---
[facility] stated they are considering taking this patient and his brother who is also admitted into this hospital; they are both covid positive. Faxed referral for review. Waiting on PT/OT evals and [facility] review/acceptance.
[2020-10-22 12:00] VITALS: BP 144/81
--- NOTE | 2020-10-22 14:16 | NUR ---
OT NOTE Occupational therapy order received and chart reviewed. Per nursing, patient is being transferred to an ICCU level of care. Due to patient's change in medical status, will need new orders when medically appropriate for an OT evaluation. Thank you. Rosa Dominguez, OTR/L
--- NOTE | 2020-10-22 14:30 | NUR ---
PHYSICAL THERAPY Eval received and chart reviewed pt in room 409-1 at time of eval orders however per nsg and new orders 10/22 at 14:14 pt transfered to ICCU level of care. Due to change in pt's medical status will need new orders when medically appropriate, thank you Crystal Lewis PT
[2020-10-22 16:00] VITALS: BP 126/66
--- NOTE | 2020-10-22 16:00 | NUR ---
Patient resting quietly with no c/o discomfort. Respirations easy and regular. Vital signs stable. No overt distress. ERYN CARY
--- NOTE | 2020-10-22 17:59 | NUR ---
SON UPDATED ON POC/PT'S CONDITION.
[2020-10-22 19:49] VITALS: BP 145/79
[2020-10-23] VITALS (10 sets, daily range): BP systolic 108–137; BP diastolic 55–70
--- NOTE | 2020-10-23 00:15 | NUR ---
Pt placed on BiPap 14/10 FiO2 60%. Alarms on and audible. SpO2 93%
--- NOTE | 2020-10-23 00:28 | NUR ---
24 HR CHART CHECK DONE
[2020-10-23 06:09] LABS: BASO % 0.2 % (0.0-1.0); EOS % 0.1 % (1.0-4.0); LYMPH # 0.6 10*3/uL (1.3-4.4); LYMPH % 5.9 % (27.0-41.0); MEAN CELL VOLUME 86.6 fl (80.0-94.0); MEAN CORPUSCULAR HGB 28.7 pg (27.0-31.0); MEAN CORPUSCULAR HGB CONC 33.2 g/dl (33.0-37.0); MEAN PLATELET VOLUME 10.5 fl (9.6-12.3); MONO # 0.5 10*3/uL (0.1-1.0); MONO % 4.7 % (3.0-9.0); NEUT # 8.7 10*3/uL (2.3-7.9); NEUT % 87.1 % (47.0-73.0); PLATELET COUNT AUTOMATED 249 10*3/uL (130-400); RED BLOOD COUNT 4.39 10*6/uL (4.50-5.90); RED CELL DISTRI WIDTH 12.1 % (0-14.5)
--- NOTE | 2020-10-23 06:22 | NUR ---
PT CHANGED TO 14L/HFNC PER REQUEST, SPO2=95
[2020-10-23 06:33] LABS: BUN 40 mg/dl (7-24); CHLORIDE 107 mmol/L (98-107); CREATININE 0.66 mg/dL (0.70-1.30); LDH 331 U/L (87-241); POTASSIUM 4.3 mmol/L (3.5-5.1); SODIUM 138 mmol/L (136-145)
--- NOTE | 2020-10-23 08:00 | NUR ---
Patient resting quietly with no c/o discomfort. Respirations easy and regular. Vital signs stable. No overt distress. ERYN CARY
[2020-10-23 08:51] LABS: ABG BASE EXCESS 2.1 mmol/L (-2.0-2.0); ARTERIAL BLOOD GAS PH 7.459 (7.35-7.45)
--- NOTE | 2020-10-23 11:36 | NUR ---
elementary school reading teacher working [facility] case management will follow
--- NOTE | 2020-10-23 14:50 | NUR ---
Occupational Therapy evaluation completed on four with full evaluation to follow. Recommend occupational therapy per plan of care and SNF upon discharge. Thank you for this referral. Rosa Dominguez OTR/L
--- NOTE | 2020-10-23 15:00 | NUR ---
PLACED BACK ON BIPAP.
--- NOTE | 2020-10-23 16:00 | NUR ---
PHYSICAL THERAPY Physical Therapy evaluation completed on 4th floor with full evaluation to follow. Recommend physical therapy per plan of care and SNF upon discharge. Thank you for this referral. Crystal Lewis PT
--- NOTE | 2020-10-23 16:00 | NUR ---
Patient resting quietly with no c/o discomfort. Respirations easy and regular. Vital signs stable. No overt distress. ERYN CARY
--- NOTE | 2020-10-23 19:23 | NUR ---
DAUGHTER UPDATED ON PT'S CONDITION AND MOVE TO ICU BED 1.
--- NOTE | 2020-10-23 21:50 | NUR ---
ASSISTED PT UP TO SIDE OF BED TO VOID IN URINAL. PT DOES DESAT TO LOW 80'S.
--- NOTE | 2020-10-23 22:20 | NUR ---
PT PULSE OX HAS RETURNED TO 90% SINCE ACTIVITY.
[2020-10-24] VITALS (11 sets, daily range): BP systolic 96–133; BP diastolic 59–72
--- NOTE | 2020-10-24 00:33 | NUR ---
Pt placed on BiPap 14/10 60%. Alarms on and audible.
--- NOTE | 2020-10-24 02:02 | NUR ---
PT SLEEPING. BIPAP ON. PULSE OX 98%. CALL LIGHT IN REACH.
--- NOTE | 2020-10-24 06:20 | NUR ---
OFF BIPAP AND PLACED ON 14L HF NASAL CANNULA. PULSE OX 93-94%.
[2020-10-24 06:36] LABS: EOS % 0.1 % (1.0-4.0); HEMATOCRIT 37.9 % (42.0-52.0); LYMPH # 0.5 10*3/uL (1.3-4.4); LYMPH % 5.7 % (27.0-41.0); MEAN CELL VOLUME 86.1 fl (80.0-94.0); MEAN CORPUSCULAR HGB 28.4 pg (27.0-31.0); MEAN PLATELET VOLUME 10.6 fl (9.6-12.3); MONO # 0.4 10*3/uL (0.1-1.0); MONO % 4.3 % (3.0-9.0); NEUT # 7.9 10*3/uL (2.3-7.9); NEUT % 87.7 % (47.0-73.0); PLATELET COUNT AUTOMATED 276 10*3/uL (130-400); WHITE BLOOD COUNT 9.1 10*3/uL (4.8-10.8)
[2020-10-24 06:50] LABS: BUN 45 mg/dl (7-24); CHLORIDE 107 mmol/L (98-107); CREATININE 0.67 mg/dL (0.70-1.30); LDH 301 U/L (87-241); POTASSIUM 4.4 mmol/L (3.5-5.1); SODIUM 137 mmol/L (136-145)
[2020-10-24 07:35] LABS: ABG BASE EXCESS 1.5 mmol/L (-2.0-2.0); ARTERIAL BLOOD GAS PH 7.444 (7.35-7.45)
--- NOTE | 2020-10-24 10:45 | NUR ---
CONCRETE PUMP OPERATOR HELPER FAXED UPDATES TO [facility].
--- NOTE | 2020-10-24 10:48 | NUR ---
PHYSICAL THERAPY Pt transfered to ICCU-1 from 409-1,pt was at critical care level in 409 however spoke with resident of who will check w her regarding if this was just a lateral transfer in care and if ok to keep seeing pt. Will await clarification. Crystal Lewis PT
--- NOTE | 2020-10-24 10:50 | NUR ---
OT NOTE Patient evaluated on 10/23/2020 when patient was admitted to [facility] under critical care status. [facility] Spoke with the resident for Dr. Lund who is going to check in regards to whether this transfer in care is lateral or a down-grade. Will hold on patient until further clarification. Thank you. Rosa Dominguez, OTR/L
--- NOTE | 2020-10-24 10:56 | NUR ---
PHYSICAL THERAPY PT orders received to continue with therapy in ICCU will follow Crystal Lewis PT
--- NOTE | 2020-10-24 10:56 | NUR ---
OT NOTE An occupational therapy order was received for ICCU-1. Will continue with POC as able. Thank you. Rosa Dominguez, OTR/L
--- NOTE | 2020-10-24 11:00 | NUR ---
DR HAMLIN IN TO SEE PATIENT.
--- NOTE | 2020-10-24 11:30 | NUR ---
DISCUSSED CASE WITH DR HAMLIN
--- NOTE | 2020-10-24 12:00 | NUR ---
ON BIPAP, PATIENT EDUCATED THAT HE IS TO REMAIN ON THE BIPAP FOR LONG POSSIBLE AND TO NOT COME OFF EXCEPT FOR MEALS. PATIENT VERBALIZED UNDERSTANDING.
--- NOTE | 2020-10-24 12:40 | NUR ---
OT NOTE Pt was seen this P.M. 1:1 for 24 minute OT session. Upon arrival pt was supine in bed. Pt identified by name and and had no complaints at this time. Pt presented to therapy with continuous 12L-O2 via BIPAP which he remained on throughout the entire session. Pt's resting SpO2 read 97%. Pt transferred supine to sit EOB with SBA. Sit to stand completed from bed level with CGA. Challenged pt's static standing tolerance needed for increased I in self care tasks and functional transfers. Pt was able to tolerate aprox 2 minutes before SpO2 dropped to 90%. During a seated rest break pt's SpO2 raised to 95% within aprox 15 seconds. While standing pt presented with F+ static standing balance. Pt completed AROM to LUE over all planes for 1 X 10 to increase and restore maximum functional use. Throughout pt had no complaints and SpO2 within functional limits. Pt was then requesting to lay back and rest due to quick onset of fatigue. Pt transferred back into bed sit to supine with SBA. There he was left with call light in hand, tray table in place, and ICCU nurse notified. Throughout entire session airborne precautions were maintained. Continue with rec D/C plan to SNF. ELOY Bernstein
--- NOTE | 2020-10-24 15:05 | NUR ---
PHYSICAL THERAPY Patient is Bi- pap machine and 12 liters of O2. Patient gives informeed consent for treatemnt. Patient completed supine > sitting on EOB with MIN A X 1. Patient sat on EOB with SBA. Patient STS from EOB with CGA X 2. Patient stood at bedside with no assistive device and POISER for 4 minutes total. Patient sat back on EOB with CGA. VITALS all WNL. Patient perofrmed LAQs, heel raises marches and hip abduction bilaterally on LEs for strengthening 2 x 10 reps each. Patient transferred back to supine in bed MIN A X 2. Patient was 1:1 with this DIRECTOR OF VETERANS AFFAIRS for 20 minutes total. ANG MCGRAW DIRECTOR OF VETERANS AFFAIRS
[2020-10-24 15:15] LABS: ABG BASE EXCESS -0.3 mmol/L (-2.0-2.0); ARTERIAL BLOOD GAS PH 7.423 (7.35-7.45)
--- NOTE | 2020-10-24 17:45 | NUR ---
REMAINS ON THE BIPAP, RESTING WITH EYES CLOSED. NO SIGNS OR SYMPTOMS OF DISTRESS. PULSE OXIMETRY IS 98% ON THE BIPAP. TOLERATING WELL. RN WILL CONTINUE TO MONITOR
--- NOTE | 2020-10-24 20:01 | NUR ---
Shift chart check completed.24 HR chart check completed.
--- NOTE | 2020-10-24 20:38 | NUR ---
ON ASSESSMENT PATIENT LYING QUIETLY IN BED, WATCHING TV. DENIES PAIN. SAID HE ATE WELL FOR DINNER. RR ARTERIAL LINE WITH GOOD WAVEFORM AND DYNAMIC RESPONSE. NO PERIPHERAL EDEMA. BIPAP MASK IN PLACE. SEE ALL APPROPRIATE INTERVENTIONS.
[2020-10-24 20:45] LABS: BILIRUBIN Negative (Negative); BLOOD Negative (Negative); CLARITY Clear (Clear); COLOR Yellow (Yellow); GLUCOSE Negative (Negative); KETONE Negative (Negative); LEUKO ESTERASE Negative (Negative); NITRITE Negative (Negative); SPECIFIC GRAVITY >= 1.030 (1.001-1.030)
[2020-10-24 20:52] LABS: EPITHELIAL CELLS 0-2; RBC 0-2 rbc/hpf (0-2)
[2020-10-24 20:53] LABS: YEAST TRACE
[2020-10-25] VITALS (8 sets, daily range): BP systolic 93–120; BP diastolic 53–68
--- NOTE | 2020-10-25 06:21 | NUR ---
ASSISTED TO STAND TO URINATE. PT CLAIMS THINKS HE'S "FEELING BETTER"
[2020-10-25 06:31] LABS: BASO % 0.1 % (0.0-1.0); EOS # 0.1 10*3/uL (0.0-0.4); EOS % 0.6 % (1.0-4.0); HEMATOCRIT 25.8 % (42.0-52.0); LYMPH # 0.8 10*3/uL (1.3-4.4); LYMPH % 6.1 % (27.0-41.0); MEAN CORPUSCULAR HGB 29.5 pg (27.0-31.0); MEAN CORPUSCULAR HGB CONC 32.9 g/dl (33.0-37.0); MEAN PLATELET VOLUME 10.5 fl (9.6-12.3); MONO # 0.6 10*3/uL (0.1-1.0); MONO % 4.9 % (3.0-9.0); NEUT # 10.9 10*3/uL (2.3-7.9); NEUT % 85.9 % (47.0-73.0); RED BLOOD COUNT 2.88 10*6/uL (4.50-5.90); RED CELL DISTRI WIDTH 12.1 % (0-14.5); WHITE BLOOD COUNT 12.7 10*3/uL (4.8-10.8)
[2020-10-25 06:35] LABS: MEAN CELL VOLUME 89.6 fl (80.0-94.0); PLATELET COUNT AUTOMATED 416 10*3/uL (130-400)
[2020-10-25 06:41] LABS: ALBUMIN 2.3 gm/dl (3.1-4.5); BUN 46 mg/dl (7-24); CHLORIDE 107 mmol/L (98-107); CREATININE 0.71 mg/dL (0.70-1.30); POTASSIUM 4.4 mmol/L (3.5-5.1); SGOT/AST 29 IU/L (3-35); SGPT/ALT 42 U/L (12-78); SODIUM 139 mmol/L (136-145); TOTAL PROTEIN 5.9 gm/dL (6.4-8.2)
[2020-10-25 06:43] LABS: ALKALINE PHOSPHATASE 72 U/L (45-117); LDH 287 U/L (87-241)
[2020-10-25 07:53] LABS: ABG BASE EXCESS 0.7 mmol/L (-2.0-2.0); ARTERIAL BLOOD GAS PH 7.432 (7.35-7.45)
--- NOTE | 2020-10-25 08:41 | NUR ---
pt medicated with dulcolax tab due to no BM since 10/21 per pt.
--- NOTE | 2020-10-25 11:59 | NUR ---
ROLLER GOLD LEAF ESSIE Baugh NOTIFIED PT HAS BEEN DOWNGRADED TO [facility].
[2020-10-25 12:04] LABS: MEAN CELL VOLUME 87.6 fl (80.0-94.0); MEAN CORPUSCULAR HGB 28.3 pg (27.0-31.0); MEAN CORPUSCULAR HGB CONC 32.3 g/dl (33.0-37.0); MEAN PLATELET VOLUME 9.8 fl (9.6-12.3); RED BLOOD COUNT 4.45 10*6/uL (4.50-5.90); RED CELL DISTRI WIDTH 12.4 % (0-14.5); WHITE BLOOD COUNT 11.5 10*3/uL (4.8-10.8)
[2020-10-25 12:05] LABS: PLATELET COUNT AUTOMATED 291 10*3/uL (130-400)
[2020-10-25 12:15] LABS: TOTAL CELLS COUNTED 100 #CELLS
[2020-10-25 12:16] LABS: PLATELET SUFFICIENCY NORMAL (NORMAL)
[2020-10-25 13:55] LABS: ABG BASE EXCESS 0.4 mmol/L (-2.0-2.0); ARTERIAL BLOOD GAS PH 7.439 (7.35-7.45)
--- NOTE | 2020-10-25 14:21 | NUR ---
OT NOTE Pt was seen this P.M. 1:1 for 20 minute OT session. Upon arrival pt was supine in bed. Pt identified by name and and had no complaints at this time. Pt presented to therapy with continuous 12 L high flow with resting SpO2 reading 96%. Pt transferred supine to sit EOB with SBA. While sitting EOB pt adjusted B socks with SBA. Sit to stand completed from bed level with CGA. Challenged pt's static standing tolerance needed for increased I in self care tasks and functional transfers. Pt was able to tolerate aprox 3 minutes at a time before sitting due to SpO2 dropping to 90%. Pt's SpO2 raised to 95% within aprox 15 seconds. While sitting EOB pt completed LUE AROM over all planes for 1 X 10 to increase and restore maximum functional use. Pt then completed another sit to stand with CGA from bed level. Challenged pt's dynamic standing balance while weight shifting, crossing midline, and reaching over all planes. Pt was able to maintain F+ standing balance throughout. Pt then side stepped up to the head of the bed with CGA for safety. Pt transferred sit to supine with SBA. There he was left with call light in hand, tray table in place, and ICCU nurse notified. Airborne precautions were maintained throughout the entire session. Continue with rec D/C plan to SNF. TYRELL Bernstein/Nolan
--- NOTE | 2020-10-25 15:35 | NUR ---
PHYSICAL THERAPY Patient presented to therapy in supine with 12 liters of spO2 VIA NASAL CANULA and attached to telemetry. Patient has no complaints. Patient gives informed consent for treatment. Patient was identified by name and on wristband. Patient performed supine to sitting on EOB with CGA. Patient sat on EOB with SBA. PATIENT'S O2 SAT was 93% - 94% sititng on EOB with 12 liters. Patient STS from EOB with CGA. Patient stood x 2 for 1 minute the 1st time and 3 sec the second time with no assistive device and CGA- SBA. Patient sat on EOB and completed bilateral LE ther ex 2 x 10 resp each in all planes of movement for strengthening the LEs. Patient completed sit EOB back to supine in bed with SBA. Patient was left in supine in bed with head of bed elevated and bed alarm on. Patietn vitals are WNL with 02 SAT at 93% and pulse at 84. Patient is on 12 liters. Patient call light within reach. Patient was 1:1 with this GAME PROGRAMMER for 20 minutes total. ANG MCGRAW GAME PROGRAMMER
--- NOTE | 2020-10-25 20:00 | NUR ---
Patient denies any complaints, states he is feel great. Vital signs prove that he is doing good. Patient on nasal cannula at this time, will go on bipap at bedtime. Patient hoping to go home in a couple of days. Patient left with call light in reach.
--- NOTE | 2020-10-25 23:02 | NUR ---
24 HR chart check completed.
[2020-10-26] VITALS: BP 99/60
[2020-10-26 04:00] VITALS: BP 110/62
[2020-10-26 05:53] LABS: HEMATOCRIT 36.8 % (42.0-52.0); MEAN CELL VOLUME 86.4 fl (80.0-94.0); MEAN CORPUSCULAR HGB 28.2 pg (27.0-31.0); MEAN CORPUSCULAR HGB CONC 32.6 g/dl (33.0-37.0); MEAN PLATELET VOLUME 10.2 fl (9.6-12.3); PLATELET COUNT AUTOMATED 267 10*3/uL (130-400); RED BLOOD COUNT 4.26 10*6/uL (4.50-5.90); RED CELL DISTRI WIDTH 12.1 % (0-14.5)
[2020-10-26 06:07] LABS: ALBUMIN 2.3 gm/dl (3.1-4.5); BUN 43 mg/dl (7-24); CHLORIDE 108 mmol/L (98-107); CREATININE 0.71 mg/dL (0.70-1.30); LDH 285 U/L (87-241); POTASSIUM 4.7 mmol/L (3.5-5.1); SGOT/AST 29 IU/L (3-35); SGPT/ALT 43 U/L (12-78); SODIUM 138 mmol/L (136-145); TOTAL PROTEIN 5.6 gm/dL (6.4-8.2)
[2020-10-26 06:08] LABS: ALKALINE PHOSPHATASE 61 U/L (45-117)
[2020-10-26 07:50] LABS: PLATELET SUFFICIENCY NORMAL (NORMAL); TOTAL CELLS COUNTED 100 #CELLS
[2020-10-26 07:50] LABS: ARTERIAL BLOOD GAS PH 7.441 (7.35-7.45)
[2020-10-26 08:00] VITALS: BP 115/66
[2020-10-26 12:00] VITALS: BP 97/51
--- NOTE | 2020-10-26 13:36 | NUR ---
PT MEDICATED WITH LACTULOSE DUE TO CONSTIPATION NO RESOLVED AFTER DULCOLAX YESTERDAY AND MILK OF MAG THIS AM.
--- NOTE | 2020-10-26 13:39 | NUR ---
ARTERIAL LINE REMOVED INTACT PER POLICY.
--- NOTE | 2020-10-26 14:26 | NUR ---
OT NOTE Pt was seen this P.M. 1:1 for 20 minute OT session. Upon arrival pt was supine in bed. Pt identified by name and and had no complaints at this time. Pt presented to therapy with continuous 8L-O2 high flow which he remained on throughout the entire session. Pt's resting SpO2 read 95%. Pt transferred supine to sit EOB with SBA. Pt completed multiple sit to stand transfers from bed level with SBA for safety. Challenged pt's static standing tolerance needed for increased I in self care tasks and functional transfers. Pt was able to tolerate aprox 3 minutes before SpO2 dropped to 88% within aprox 15 seconds it raised to 91%. Pt then completed functional mobility to the bathroom door and back due to limited monitor lines with CGA for safety. Also while sitting EOB pt completed AROM to LUE over all planes for 1 X 10 to increase and restore maximum functional use. Pt then transferred back into bed sit to supine with SBA. There he was left with call light in hand, tray table in place, and ICCU nurse notified. Continue with rec D/C plan to SNF. Throughout entire session airborne precautions were maintained. TYRELL Bernstein/Nolan
--- NOTE | 2020-10-26 15:00 | NUR ---
REPORT GIVEN TO INPT RN AND PT TRANSFERED TO [facility] AT THIS TIME VIA BED.
--- NOTE | 2020-10-26 15:36 | NUR ---
PHYSICAL THERAPY Patient presented to therapy in supine in bed with head of bed elevated and 8 liters of spO2 VIA HI-FLOW NC. Patient has no complaints and says he is feeling better. Patient gives informed consent for treatment. Patient was identified by name and on wristband. Patient performed supine < > sititng on EOB with SBA. Patient sat on EOB for a total of 15 minutes wit hno LOB and good tolerance. Patient O2 SATs rmained between 88% - 95% on 8 liters of spO2 VIA NC. Patient STS < > sitting EOB with SBA. Patient side-stepepd 4 Xs head of bed < > foot of bed and back with COTTON TIER. NO ASSISTIVE DEVICE WAS USED. Patient performed standing tolerance at bedside with SBA for 1 minute 4 Xs or until O2 SAT dropped ot 89%. At 89% patient was asked to sit for a rest break. Patient performed sitting EOB bilateral LE ther ex 2 x 10 reps each including LAQs marches ,heel/toe raises and hip abduction for strengthening the LEs in order to improve patient's strength snd functional mobility. Patient transferred back to supine in bed with SBA. Patient was able to move himself up to head of bed with SBA. Patient was left in supine in bed with head of bed elevated , call light within reach. Patient was 1:1 wit [facility] FIRE CAPTAIN MARINE for 23 minutes total. Patient will be moving out of Iccu room 407 shortly according to Nurse. Patient was 1:1 with this FIRE CAPTAIN MARINE for 23 minutes total. ANG MCGRAW FIRE CAPTAIN MARINE
--- NOTE | 2020-10-26 15:54 | NUR ---
OCCUPATIONAL THERAPY CO-SIGN I approve of the Occupational Therapy notes written above. PAULINA HERNANDEZ, OTR/L
--- NOTE | 2020-10-26 15:54 | NUR ---
PHYSICAL THERAPY CO-SIGN I approve of the Physical Therapy notes written above. Crystal Lewis PT
[2020-10-26 16:00] VITALS: BP 115/70
--- NOTE | 2020-10-26 19:49 | NUR ---
PATIENT CURRENTLY ON 8 L HI CLARIBEL HR 94 SPO2 95%. PATIENT DOES NOT WANT TO GO ON BIAPAP AT THIS TIME.
[2020-10-26 20:00] VITALS: BP 111/66
--- NOTE | 2020-10-26 20:00 | NUR ---
PATIENT RESTING IN BED. DENIES ANY NEEDS AT THIS TIME. ASSESSMENT COMPLETE. 8LHFNC IN PLACE. CALL LIGHT WITHIN REACH.
[2020-10-27] VITALS: BP 114/76
--- NOTE | 2020-10-27 00:04 | NUR ---
24 HR chart check completed.
--- NOTE | 2020-10-27 07:58 | NUR ---
PT NOT ON BIPAP AT THIS TIME
[2020-10-27 08:00] VITALS: BP 111/75
--- NOTE | 2020-10-27 08:00 | NUR ---
IN TO ROOM. PATIENT AWAKE, ALERT AND ORIENTED. NO STATED COMPLAINTS AT THIS TIME. RESPAITIONS ARE EASY AND REGULAR AT THIS TIME ON NASAL CANNULA. PT DENIES PAIN. PT ABLE TO REPOSITION SELF AND IS ENCOURAGED TO DO SO. BED IN LOWEST LOCKED POSITION AND CALL LIGHT WITHIN REACH. WILL CONTINUE TO MONITOR.
[2020-10-27 08:18] LABS: BASO % 0.2 % (0.0-1.0); EOS % 0.2 % (1.0-4.0); HEMATOCRIT 37.8 % (42.0-52.0); LYMPH # 0.6 10*3/uL (1.3-4.4); LYMPH % 5.4 % (27.0-41.0); MEAN CELL VOLUME 87.3 fl (80.0-94.0); MEAN CORPUSCULAR HGB 28.6 pg (27.0-31.0); MEAN CORPUSCULAR HGB CONC 32.8 g/dl (33.0-37.0); MEAN PLATELET VOLUME 10.7 fl (9.6-12.3); MONO # 0.6 10*3/uL (0.1-1.0); MONO % 5.5 % (3.0-9.0); NEUT # 9.9 10*3/uL (2.3-7.9); NEUT % 86.9 % (47.0-73.0); PLATELET COUNT AUTOMATED 330 10*3/uL (130-400); RED BLOOD COUNT 4.33 10*6/uL (4.50-5.90); RED CELL DISTRI WIDTH 12.1 % (0-14.5); WHITE BLOOD COUNT 11.4 10*3/uL (4.8-10.8)
[2020-10-27 09:19] LABS: ALBUMIN 2.4 gm/dl (3.1-4.5); BUN 41 mg/dl (7-24); CHLORIDE 106 mmol/L (98-107); CREATININE 0.78 mg/dL (0.70-1.30); LDH 255 U/L (87-241); POTASSIUM 4.9 mmol/L (3.5-5.1); SGOT/AST 26 IU/L (3-35); SGPT/ALT 40 U/L (12-78); SODIUM 137 mmol/L (136-145); TOTAL PROTEIN 5.7 gm/dL (6.4-8.2)
[2020-10-27 09:20] LABS: ALKALINE PHOSPHATASE 57 U/L (45-117)
[2020-10-27 12:00] VITALS: BP 97/64
--- NOTE | 2020-10-27 15:00 | NUR ---
PT RESTING IN BED. RESPS EASY AND NON LABORED. NO S/S OF DISTRESS NOTED. VSS. WHITE BOARD UPDATED. POC DISCUSSED W PT. A/O X3. WILL CONTINUE TO MONITOR. CALL LIGHT WITHIN REACH.
[2020-10-27 16:00] VITALS: BP 100/70
--- NOTE | 2020-10-27 19:44 | NUR ---
24 HR CHART CHECK COMPLETE.Y
[2020-10-27 20:00] VITALS: BP 111/65
--- NOTE | 2020-10-27 23:30 | NUR ---
PLACED PATIENT ON BIPAP FOR HS
[2020-10-28 06:57] LABS: BASO % 0.1 % (0.0-1.0); EOS # 0.2 10*3/uL (0.0-0.4); HEMATOCRIT 39.3 % (42.0-52.0); LYMPH % 8.9 % (27.0-41.0); MEAN CELL VOLUME 87.1 fl (80.0-94.0); MEAN CORPUSCULAR HGB 28.2 pg (27.0-31.0); MEAN CORPUSCULAR HGB CONC 32.3 g/dl (33.0-37.0); MEAN PLATELET VOLUME 9.5 fl (9.6-12.3); MONO # 0.7 10*3/uL (0.1-1.0); NEUT % 81.4 % (47.0-73.0); PLATELET COUNT AUTOMATED 308 10*3/uL (130-400); RED BLOOD COUNT 4.51 10*6/uL (4.50-5.90); RED CELL DISTRI WIDTH 12.3 % (0-14.5); WHITE BLOOD COUNT 11.1 10*3/uL (4.8-10.8)
[2020-10-28 07:27] LABS: CHLORIDE 105 mmol/L (98-107); POTASSIUM 5.6 mmol/L (3.5-5.1); SODIUM 138 mmol/L (136-145)
[2020-10-28 07:36] LABS: ALBUMIN 2.3 gm/dl (3.1-4.5); ALKALINE PHOSPHATASE 59 U/L (45-117); BUN 43 mg/dl (7-24); CREATININE 0.96 mg/dL (0.70-1.30); LDH 246 U/L (87-241); SGOT/AST 26 IU/L (3-35); SGPT/ALT 36 U/L (12-78); TOTAL PROTEIN 5.6 gm/dL (6.4-8.2)
[2020-10-28 08:00] VITALS: BP 103/66
--- NOTE | 2020-10-28 09:15 | NUR ---
PATIENT TAKEN OFF OF -PAP, PLACED ON 8 L/M.
[2020-10-28 12:00] VITALS: BP 111/60
--- NOTE | 2020-10-28 13:05 | NUR ---
DR HAMLIN IN TO SEE PT, ORDERS RECEIVED TO DECREASE HIGH CLARIBEL O2 TO 4L, MONITOR AND ADJUSTED NEEDED. ADJUSTED PER ORDERS. PT TOLERATING. WILL MONITOR. ISOLATION PRECAUTIONS MAINTAINED. CALL LIGHT IN REACH.
[2020-10-28 16:00] VITALS: BP 98/69
[2020-10-29] VITALS: BP 96/54
--- NOTE | 2020-10-29 07:29 | NUR ---
Patient updated clinicals faxed to Alicia at [facility]; patient still on high flow oxygen.
[2020-10-29 07:32] LABS: HEMATOCRIT 42.8 % (42.0-52.0); MEAN CELL VOLUME 87.2 fl (80.0-94.0); MEAN CORPUSCULAR HGB 28.1 pg (27.0-31.0); MEAN CORPUSCULAR HGB CONC 32.2 g/dl (33.0-37.0); MEAN PLATELET VOLUME 9.6 fl (9.6-12.3); PLATELET COUNT AUTOMATED 352 10*3/uL (130-400); RED BLOOD COUNT 4.91 10*6/uL (4.50-5.90); RED CELL DISTRI WIDTH 12.5 % (0-14.5); WHITE BLOOD COUNT 13.5 10*3/uL (4.8-10.8)
[2020-10-29 07:58] LABS: TOTAL CELLS COUNTED 100 #CELLS
[2020-10-29 08:00] VITALS: BP 109/69
[2020-10-29 08:02] LABS: PLATELET SUFFICIENCY NORMAL (NORMAL)
[2020-10-29 08:05] LABS: ALBUMIN 2.7 gm/dl (3.1-4.5); BUN 37 mg/dl (7-24); CHLORIDE 101 mmol/L (98-107); CREATININE 0.98 mg/dL (0.70-1.30); LDH 283 U/L (87-241); SGOT/AST 26 IU/L (3-35); SGPT/ALT 37 U/L (12-78); SODIUM 135 mmol/L (136-145)
[2020-10-29 08:07] LABS: ALKALINE PHOSPHATASE 69 U/L (45-117); POTASSIUM 4.1 mmol/L (3.5-5.1); TOTAL PROTEIN 6.3 gm/dL (6.4-8.2)
--- NOTE | 2020-10-29 08:31 | NUR ---
Faxed additional clinicals to [facility] for review. Patient is on bipap at night 40% and 4 liters NC during the day. [facility] getting [facility] to [facility] and will need bipap. Setting faxed.
--- NOTE | 2020-10-29 08:40 | NUR ---
NORVASC & LISINOPRIL HELD DUE TO LOW BP - 109/69. PATIENT TOOK ALL OTHER MEDS WITH NO DIFFICULTY - O2 @ 5L. CALL LIGHT IN REACH AT ALL TIMES
--- NOTE | 2020-10-29 09:20 | NUR ---
OT NOTE Pt was seen this A.M. 1:1 for 25 minute OT session. Upon arrival pt was supine in bed. Pt identified by name and and had no complaints at this time. Pt presented to therapy with continuous 5L-O2 high flow which he remained on throughout the entire session. Pt transferred supine to sit EOB with SBA. While sitting EOB pt donned B socks with SBA. Sit to stand completed from bed level with CGA for safety. Functional mobility completed to the bathroom with CGA for safety due to bouts of unsteady stance that required Guera to correct. Pt transferred on/off standard commode with CGA for safety. Pt then stood sink side while completing hair care with CGA. Functional mobility completed back to the EOB with CGA. While sitting EOB pt completed BUE towel exercises over all planes for 1 X 10 with min resistance to increase and restore maximum functional strength. Challenged pt's dynamic standing balance while weight shifting, crossing midline, and reaching over all planes and pt was able to maintain F+/G- standing balance throughout. Pt then transferred back into bed sit to supine with SBA. There he was left with call light in hand, tray table in place, and phone in reach. Throughout entire session pt's SpO2 was within functional limits and airborne precautions were maintained throughout. COntinue with rec D/C plan to SNF. TYRELL Bernstein/Nolan
--- NOTE | 2020-10-29 11:38 | NUR ---
PHYSICAL THERAPY Patient presented to therapy in supine with head of bed elevated and bed alarm off. Patient has no complaints this morning. Patient was identified by name and on wristband. Patient gives informeed consent for treatment. Patient is on 4 liters of spO2 via nasal canula. Patient performed supine > sitting on EOB with SBA. Patient sat on EOB with SBA. Patient completed STSs from EOB with CGA - SBA with verbal cues for hand placement. Patient performed ambulated with NO Assistive Device and FOOD PROCESSING CHEMIST on 4 liters spO2 with no LOB and no SOB. Patient STS from low chair with CGA and verbal cues for hand placement. Patient performed sitting bilateral LE ther ex 2 X 10 reps each including LAQs, marches, hip abduction and heel/toe raises for strengthening the LEs. Patient was left in bedside chair with call light within reach, tray table near patient and LEs in low position. Patient was 1:1 withthis WEEKEND RECEPTIONIST for 20 minutes total. O2 STATS STAYED AT 90% - 94%. ANG MCGRAW WEEKEND RECEPTIONIST
[2020-10-29 12:00] VITALS: BP 93/68
--- NOTE | 2020-10-29 14:00 | NUR ---
Patient has been accepted to [facility] and is able to go today if medically stable for discharge. Bipap has been ordered and will arrive tonight. Notified Maggy in hospitalists office.
--- NOTE | 2020-10-29 15:04 | NUR ---
pt walked on 3L sao2 dropped to 88% and o2 was moved to 5Lnc. pt became unsteady on his feet but sao2 was holding at 92% on 5lnc. pre bp- 98/63 hr-96 post bp 140/103 hr-122 pt required 5l with movement. walked without assistance but second trip from bed to the door he did rock back and i had to steady him and also swayed to the side and i walked with my arm around him back to the bed
[2020-10-29 16:00] VITALS: BP 106/74
[2020-10-30] VITALS: BP 109/71
--- NOTE | 2020-10-30 00:08 | NUR ---
Pt placed on BiPap 14/10 and FiO2 40%. Alarms on and audible.
--- NOTE | 2020-10-30 00:20 | NUR ---
PT RESTING IN BED WITH BIPAP IN USE. RESP-EASY AND REGULAR. NO C/O AT THIS TIME. CALL LIGHT IN REACH. SEE SHIFT ASSESSMENT.
--- NOTE | 2020-10-30 04:00 | NUR ---
PT SLEEPING IN BED. RESP-EASY AND REGULAR. BIPAP IN USE. CALL LIGHT IN REACH.
[2020-10-30 06:47] LABS: BASO % 0.2 % (0.0-1.0); EOS # 0.1 10*3/uL (0.0-0.4); EOS % 1.2 % (1.0-4.0); LYMPH % 8.7 % (27.0-41.0); MEAN CELL VOLUME 87.1 fl (80.0-94.0); MEAN CORPUSCULAR HGB 27.9 pg (27.0-31.0); MEAN CORPUSCULAR HGB CONC 32.1 g/dl (33.0-37.0); MONO # 0.7 10*3/uL (0.1-1.0); MONO % 6.8 % (3.0-9.0); NEUT # 8.9 10*3/uL (2.3-7.9); NEUT % 81.4 % (47.0-73.0); PLATELET COUNT AUTOMATED 281 10*3/uL (130-400); RED BLOOD COUNT 4.48 10*6/uL (4.50-5.90); RED CELL DISTRI WIDTH 12.4 % (0-14.5); WHITE BLOOD COUNT 10.9 10*3/uL (4.8-10.8)
[2020-10-30 07:18] LABS: ALBUMIN 2.3 gm/dl (3.1-4.5); BUN 32 mg/dl (7-24); CHLORIDE 103 mmol/L (98-107); LDH 253 U/L (87-241); POTASSIUM 4.3 mmol/L (3.5-5.1); SGOT/AST 22 IU/L (3-35); SGPT/ALT 25 U/L (12-78); SODIUM 137 mmol/L (136-145); TOTAL PROTEIN 5.5 gm/dL (6.4-8.2)
[2020-10-30 07:19] LABS: ALKALINE PHOSPHATASE 67 U/L (45-117); CREATININE 0.74 mg/dL (0.70-1.30)
[2020-10-30 08:00] VITALS: BP 110/61
--- NOTE | 2020-10-30 10:22 | NUR ---
OT NOTE Pt was seen this A.M. 1:1 for 24 minute OT session. Upon arrival pt was supine in bed. Pt identified by name and and had no complaints at this time. Pt presented to therapy with continuous 5L-O2 high flow. Pt transferred supine to sit EOB with SBA. While sitting EOB pt donned B socks independent. Sit to stand completed from bed level with SBA. Functional mobility completed to the bathroom with SBA. There he transferred on/off standard commode with SBA and use of grab bar for UE support. He then stood sink side while washing his hands with SBA. Functional mobility completed back to the EOB. Challenged pt's dynamic standing balance while weight shifting, crossing midline, and reaching over all planes. Pt was able to maintain F+/G- standing balance throughout. Pt then completed BUE towel exersises over all planes for 1 X 10 to increase and restore maximum functional strength. Pt transferred back into bed sit to supine with SBA. There he was left with call light in hand, tray table in place, and phone in reach. Continue with POC as able. Throughout entire session airborne precautions were maintained. TYRELL Bernstein/Nolan
[2020-10-30] MEDS ORDERED: XARE20MG PO (11:28)
--- NOTE | 2020-10-30 11:42 | NUR ---
Received home health order, patient is now going home. CM spoke with patients daughter who is agreeable and asked for [facility] home health. Contacted [facility] and faxed referral, notified of D/C today.
--- NOTE | 2020-10-30 11:44 | NUR ---
case management received a message that patient would like to return home with home health insteady of going to [facility]. patient lives with family, called and talked with patient's daughter Allie regarding patient returning home. Allie stated patient lives in an in law home connected to her home. she stated she felt patient would be fine returning home instead of going to a short term skilled. discussed with her VNA and she stated she would like [facility] set up. store planner will contact [facility]. also educted her that patient will need continuous oxygen when discharged and this will be set up prior to patient returning home, she verbalized understanding. daughter also stated she would be able to transport patient home when discharged, nursing staff would need to notify her. case management informed silver steward.
--- NOTE | 2020-10-30 11:49 | NUR ---
case management received a script for home oxygen for patient, contacted [facility], spoke to Sera. educated her patient is being discharged to home today. she stated delivery assistant will bring a portable tank for patient to return home. all of patient's information faxed to [facility]
[2020-10-30 12:00] VITALS: BP 97/60
--- NOTE | 2020-10-30 12:23 | NUR ---
PHYSICAL THERAPY Patient presented to therapy in supine with head of bed elevated and bed alarm on. Patient gives informed consent for treatment. Patient was identified by name and on wristband. Patient is on 5 liters of spO2 via nasal canula. Patient performed supine < > sitting on EOB with SBA. Patient's O2 sat was WNL. Patient sat on EOB with SBA. Patient completed STS from EOB with SBA. Patient ambulated without assistive device and Close Supervision 50' x 1 with no LOB and no SOB. Patient then completed TUG TEST in 21 seconds without use of UEs from low chair. Patient performed 5 Xs STS test in 18 seconds without use of UEs to stand. Patient is doing very well and demonstraes good balance and no SOB with activity on 5 liters of spO2. Patient transferred back to supine in bed with SBA. Patient was left in supine in bed with head of bed elevated and call light within reach. Tray table left near patient. Patient was 1:1 with this ANIMAL TAXONOMIST for 22 minutes total. ANG MCGRAW ANIMAL TAXONOMIST
--- NOTE | 2020-10-30 14:30 | NUR ---
Discharge instructions reviewed with patient/family. Patient receptive and verbalizes understanding. Follow-up care arranged. Written instructions given to patient/family. HEPLOCK DISCONTINUED. PATIENT'S HOME O2 WAS DELIVERED FROM [facility]. TAKEN OFF FLOOR VIA WHEELCHAIR. INSTRUCTED ON HOW TO USE OXYGEN TANKS. DISCHARGED ON 5L O2. GISELE JAMES
--- NOTE | 2020-10-31 07:43 | NUR ---
OCCUPATIONAL THERAPY CO-SIGN I approve of the Occupational Therapy notes written above. PAULINA HERNANDEZ, OTR/L
--- NOTE | 2020-10-31 07:54 | NUR ---
PHYSICAL THERAPY CO-SIGN I approve of the Physical Therapy notes written above. KELLEY TUCKER PT,DPT
== END 2020-10-30 14:30 | disposition home health service (06) | DRG 871 ==
LOC: ED 11:31 → ICCU 14:17 → EDHOLD 14:17 → 4E 14:17 → EDHOLD 14:43 → 4E 22:44 → ICCU 10-23 18:47 → 4E 10-26 14:03
PROVIDERS: Emergency Medicine; Internal Medicine; Internal Medicine Critical Care Medicine; Social Worker Clinical; Student in an Organized Health Care Education/Training Program; ADMIT Emergency Medicine; ATTEND Emergency Medicine
PROC: 5A09357 Assistance with Respiratory Ventilation, Less than 24 Consecutive Hours, Continuous Positive Airway Pressure (ICD-10-PCS; 2020-10-19)
PROC: 5A0935A Assistance with Respiratory Ventilation, Less than 24 Consecutive Hours, High Flow/Velocity Cannula (ICD-10-PCS; 2020-10-20)
PROC: 5A0935A Assistance with Respiratory Ventilation, Less than 24 Consecutive Hours, High Flow/Velocity Cannula (ICD-10-PCS; 2020-10-21)
PROC: 5A09357 Assistance with Respiratory Ventilation, Less than 24 Consecutive Hours, Continuous Positive Airway Pressure (ICD-10-PCS; 2020-10-21)
PROC: 03HY32Z Insertion of Monitoring Device into Upper Artery, Percutaneous Approach (ICD-10-PCS; principal; 2020-10-22)
PROC: B54MZZA Ultrasonography of Right Upper Extremity Veins, Guidance (ICD-10-PCS; 2020-10-22)
PROC: XW033E5 Introduction of Remdesivir Anti-infective into Peripheral Vein, Percutaneous Approach, New Technology Group 5 (ICD-10-PCS; 2020-10-22)
PROC: 5A09357 Assistance with Respiratory Ventilation, Less than 24 Consecutive Hours, Continuous Positive Airway Pressure (ICD-10-PCS; 2020-10-23)
PROC: 5A09357 Assistance with Respiratory Ventilation, Less than 24 Consecutive Hours, Continuous Positive Airway Pressure (ICD-10-PCS; 2020-10-29)
PROC: 5A0935A Assistance with Respiratory Ventilation, Less than 24 Consecutive Hours, High Flow/Velocity Cannula (ICD-10-PCS; 2020-10-30)
PROC: 5A09357 Assistance with Respiratory Ventilation, Less than 24 Consecutive Hours, Continuous Positive Airway Pressure (ICD-10-PCS; 2020-10-30)
DX: A41.9 Sepsis, unspecified organism (principal); U07.1 COVID-19; J18.0 Bronchopneumonia, unspecified organism; E43 Unspecified severe protein-calorie malnutrition; J96.21 Acute and chronic respiratory failure with hypoxia; D68.59 Other primary thrombophilia; R65.20 Severe sepsis without septic shock; M81.0 Age-related osteoporosis without current pathological fracture; K59.00 Constipation, unspecified; N40.0 Benign prostatic hyperplasia without lower urinary tract symptoms; E78.5 Hyperlipidemia, unspecified; K21.9 Gastro-esophageal reflux disease without esophagitis; I10 Essential (primary) hypertension; E87.8 Other disorders of electrolyte and fluid balance, not elsewhere classified; R73.9 Hyperglycemia, unspecified; E87.5 Hyperkalemia; E55.9 Vitamin D deficiency, unspecified; Z87.442 Personal history of urinary calculi; Z83.6 Family history of other diseases of the respiratory system; Z98.49 Cataract extraction status, unspecified eye; Z79.899 Other long term (current) drug therapy; Z68.24 Body mass index [BMI] 24.0-24.9, adult

== ENCOUNTER → 2020-12-03 | Outpatient (CLI) | payer OTHER ==
[~2020-12-03] MED LIST changes: +AMLODIPINE BESYL5 MG PO; +LORATADINE-D 11 EACH PO; +XARE20MG PO
== END | disposition home or self-care (01) ==
LOC: US 10:54
PROVIDERS: ATTEND Internal Medicine
DX: N20.0 Calculus of kidney (principal); N28.1 Cyst of kidney, acquired

== ENCOUNTER → 2021-01-01 | Outpatient (CLI) | payer OTHER | END | disposition home or self-care (01) | LOC: LAB 12:21 | PROVIDERS: ATTEND Internal Medicine Nephrology | DX: N39.0 Urinary tract infection, site not specified (principal); A49.02 Methicillin resistant Staphylococcus aureus infection, unspecified site ==

== ENCOUNTER → 2021-01-07 | Outpatient (CLI) | payer OTHER | END | disposition home or self-care (01) | LOC: CT 12:39 | PROVIDERS: ATTEND Internal Medicine Nephrology | DX: N20.0 Calculus of kidney (principal); N28.1 Cyst of kidney, acquired; J47.9 Bronchiectasis, uncomplicated; J98.11 Atelectasis; M41.87 Other forms of scoliosis, lumbosacral region; M51.36 Other intervertebral disc degeneration, lumbar region ==

== ENCOUNTER → 2021-01-29 | Outpatient (CLI) | payer OTHER ==
[2021-01-29 12:55] LABS: ALBUMIN 3.5 gm/dl (3.1-4.5); ALKALINE PHOSPHATASE 74 U/L (45-117); BUN 26 mg/dl (7-24); CHLORIDE 107 mmol/L (98-107); CREATININE 1.06 mg/dL (0.70-1.30); POTASSIUM 4.7 mmol/L (3.5-5.1); SGOT/AST 17 IU/L (3-35); SGPT/ALT 17 U/L (12-78); SODIUM 139 mmol/L (136-145); TOTAL PROTEIN 6.9 gm/dL (6.4-8.2)
[2021-01-29 14:19] LABS: BILIRUBIN Negative (Negative); BLOOD 2+ (Negative); CLARITY Cloudy (Clear); COLOR Yellow (Yellow); GLUCOSE Negative (Negative); KETONE Negative (Negative); LEUKO ESTERASE Trace (Negative); NITRITE Negative (Negative); PH 5.5 (4.5-8.0)
[2021-01-29 15:50] LABS: BACTERIA 1+; RBC 21-30 rbc/hpf (0-2)
== END | disposition home or self-care (01) ==
LOC: CARD 01-28 11:30 → LAB 01:05 → CARD 13:00
PROVIDERS: ATTEND Internal Medicine Cardiovascular Disease
DX: I12.9 Hypertensive chronic kidney disease with stage 1 through stage 4 chronic kidney disease, or unspecified chronic kidney disease (principal); N18.30 Chronic kidney disease, stage 3 unspecified; N39.0 Urinary tract infection, site not specified; Z86.16 Personal history of COVID-19; Z79.899 Other long term (current) drug therapy

== ENCOUNTER → 2021-05-27 | Outpatient (CLI) | payer OTHER ==
[2021-06-06 22:06] LABS: BUSHITE 0.13 ratio (0.00-3.00); CALCIUM OXALATE 0.92 ratio (0.00-6.00); CALCIUM, URINE 2.5 mg/dL (Not Estab.); CALCIUM, URINE 60.6 mg/24 hr (100.0-300.0); CITRIC ACID (CITRATE) 264 mg/24 hr (320-1240); CREATININE, URINE 38.4 mg/dL (Not Estab.); CREATININE, URINE 931.2 mg/24 hr (1000.0-2000.0); MAGNESIUM, URINE 2.6 mg/dL (Not Estab.); MONOSODIUM URATE 0.93 ratio (0.00-4.00); OSMOLALITY, URINE 352 (300-900); SODIUM, URINE 209 (23-207); SODIUM, URINE 86 mmol/L (Not Estab.); STRUVITE 0.01 ratio (0.00-1.00); URIC ACID 0.66 ratio (0.00-1.20); pH 24 HR URINE 5.8 (.)
== END | disposition home or self-care (01) ==
LOC: LAB 11:01
PROVIDERS: ATTEND Internal Medicine Nephrology
DX: N20.0 Calculus of kidney (principal)

== ENCOUNTER → 2021-09-23 | Outpatient (CLI) | payer OTHER ==
[2021-09-23 10:21] LABS: CHOLESTEROL 128 mg/dL (<200); LDL CHOLESTEROL 55 mg/dL (9-159); SGOT/AST 18 IU/L (3-35); SGPT/ALT 22 U/L (12-78); TRIGLYCERIDES 59 mg/dl (<150)
== END | disposition home or self-care (01) ==
LOC: LAB 09:33
PROVIDERS: ATTEND Registered Nurse
DX: I25.10 Atherosclerotic heart disease of native coronary artery without angina pectoris (principal); M47.816 Spondylosis without myelopathy or radiculopathy, lumbar region; Z87.442 Personal history of urinary calculi

== ENCOUNTER → 2022-04-08 | Outpatient (CLI) | payer OTHER | END | disposition home or self-care (01) | LOC: RAD 11:53 | PROVIDERS: ATTEND Internal Medicine | DX: M51.34 Other intervertebral disc degeneration, thoracic region (principal); M25.78 Osteophyte, vertebrae; M43.8X4 Other specified deforming dorsopathies, thoracic region ==

== ENCOUNTER → 2022-05-05 | Outpatient (CLI) | payer OTHER | END | disposition home or self-care (01) | LOC: CARD 09:02 | PROVIDERS: ATTEND Internal Medicine Nephrology | DX: I95.1 Orthostatic hypotension (principal) ==

== ENCOUNTER 2022-07-11 18:41 | Emergency (ER) | payer OTHER ==
[~2022-07-11] VITALS: Wt 74.8 kg
[2022-07-11 19:42] VITALS: BP 162/95
[2022-07-11 20:06] LABS: BASO % 0.5 % (0.0-1.0); EOS # 0.2 10*3/uL (0.0-0.4); EOS % 1.8 % (1.0-4.0); HEMATOCRIT 42.3 % (42.0-52.0); LYMPH # 1.6 10*3/uL (1.3-4.4); MEAN CELL VOLUME 91.6 fl (80.0-94.0); MEAN CORPUSCULAR HGB CONC 31.7 g/dl (33.0-37.0); MEAN PLATELET VOLUME 10.4 fl (9.6-12.3); MONO # 0.7 10*3/uL (0.1-1.0); MONO % 8.1 % (3.0-9.0); NEUT # 5.9 10*3/uL (2.3-7.9); NEUT % 70.4 % (47.0-73.0); PLATELET COUNT AUTOMATED 118 10*3/uL (130-400); RED BLOOD COUNT 4.62 10*6/uL (4.50-5.90); RED CELL DISTRI WIDTH 12.9 % (0-14.5); WHITE BLOOD COUNT 8.4 10*3/uL (4.8-10.8)
[2022-07-11 20:21] LABS: BUN 35 mg/dl (7-24); CHLORIDE 110 mmol/L (98-107); CREATININE 1.01 mg/dL (0.70-1.30); POTASSIUM 4.1 mmol/L (3.5-5.1); SODIUM 141 mmol/L (136-145)
== END 2022-07-11 22:00 | disposition home or self-care (01) ==
LOC: ED 18:41
PROVIDERS: Internal Medicine
DX: R51.9 Headache, unspecified (principal); I10 Essential (primary) hypertension; Z79.899 Other long term (current) drug therapy; Z79.82 Long term (current) use of aspirin; Z98.890 Other specified postprocedural states; Z87.440 Personal history of urinary (tract) infections

== ENCOUNTER → 2022-08-12 | Outpatient (CLI) | payer OTHER | END | disposition home or self-care (01) | LOC: RAD 11:57 | PROVIDERS: ATTEND Urology | DX: N20.0 Calculus of kidney (principal); M47.816 Spondylosis without myelopathy or radiculopathy, lumbar region ==

== ENCOUNTER → 2023-04-10 | Outpatient (CLI) | payer OTHER | END | disposition home or self-care (01) | LOC: RAD 10:55 | PROVIDERS: ATTEND Internal Medicine | DX: M43.16 Spondylolisthesis, lumbar region (principal); M41.86 Other forms of scoliosis, lumbar region; M48.061 Spinal stenosis, lumbar region without neurogenic claudication; M47.817 Spondylosis without myelopathy or radiculopathy, lumbosacral region ==